=== PATIENT | female | born 1930 | race Caucasian/White ===

== ENCOUNTER 2019-07-31 14:07 | Inpatient (IN) | payer OTHER, MEDICARE ==
[2019-07-31] MEDS ORDERED: dilTIAZem HCL 50 MG/10 ML - 10 ML VIAL IVPUSH ONE (14:35)
[2019-07-31] MEDS ORDERED: LACTATED RINGERS SOLUTION 1000 ML INFUS.BAG IV ONE (14:36)
[2019-07-31 14:43] LABS: EOS % 0.6 % (0-4.5); HEMATOCRIT 42.8 % (32.4-45.2); HEMOGLOBIN 14.6 GM/dL (10.7-15.3); LYMPH % 11.6 % (8-40); MCH 33.7 pg (25.7-33.7); MEAN CELL VOLUME 99.1 fl (80-96); MEAN PLT VOLUME 7.1 fl (7.5-11.1); MONO % 9.9 % (3.8-10.2); NEUT % 76.9 % (42.8-82.8); PLATELET COUNT 239 K/MM3 (134-434); RBC 4.32 M/mm3 (3.60-5.2); WHITE BLOOD COUNT 6.2 K/mm3 (4.0-10.0)
[2019-07-31] MEDS: METOPROLOL TARTRATE 5 MG/5 ML VIAL IVPUSH PRN ×2 (14:43→15:03)
[2019-07-31 14:54] LABS: INR 1.01 (0.83-1.09); PROTHROMBIN TIME (PATIENT) 11.9 SEC (9.7-13.0)
[2019-07-31 14:57] LABS: ACTIVATED PTT 33.8 SECONDS (25.2-36.5)
[2019-07-31] MEDS ORDERED: METOPROLOL TARTRATE 25 MG TABLET (FP) PO ONE (15:00)
--- NOTE | 2019-07-31 15:29 | PDOC ---
Attending Attestation - Resident Resident Name: Matthew Tan - ED Attending Attestation I have performed the following: I have examined & evaluated the patient, The case was reviewed & discussed with the resident, I agree w/resident's findings & plan, Exceptions are as noted - HPI HPI: 07/31/19 15:23 89yo female with hx of ocular pemphigoid and htn, hld with new onset afib today. States she has been feeling "off" recently. States she was in Dr. Briggs office when her initial ekg was sinus and she went into afib w rvr. Pt denies cp /sob. Denies feeling palpitations. Denies abd pain. No n/v/d. No dysuria. No f/ c. No cough. Pt admits to recent weight loss. - Physicial Exam PE: 07/31/19 15:26 Gen: aaox3, nad heart: +s1s2 irreg irreg, tachy lungs: cta b/l abd: soft, nt/nd +bs ext: no c/c/e - Critical Care Time Total Critical Care Time: 35 Critical Care Statement: The care of this patient involved high complexity decision making to prevent further life threatening deterioration of the patient 's condition and/or to evaluate & treat vital organ system(s) failure or risk of failure. - Medical Decision Making 07/31/19 15:29 a/p: 89yo female on methotrexate for her ocular pemphigoid with new onset afib -hx of htn and hld -chadsvasc- will need anticoags -takes metoprolol orally - will give lopressor iv for rate control and follow with an oral dose of metoprolol -will send labs, tsh, trop -will need admission -will discuss with Dr. Briggs 07/31/19 15:30 HR 105 after 2 IV push lopressor 5mg oral metoprolol ordered bp stable resident discussed the case with Dr. Barber who requests consult to Dr. Luna 07/31/19 15:31 h/h stable 07/31/19 15:36 cxr clear 07/31/19 15:[address] Dorsey who will see patient in consult 07/31/19 15:57 07/31/19 17:05 symphomn has accepted the patient to service Heart Score/ECG Review - ECG Intrepretation Comment:: 07/31/19 15:31 afib at 135, nl axis, st depressions laterally, abnl ekg
--- NOTE | 2019-07-31 15:32 | PDOC ---
History of Present Illness - General Chief Complaint: Irregular Heart Beat Stated Complaint: SENT BY PCP/ABNORMAL EKG Time Seen by Provider: 07/31/19 14:24 History Source: Patient, Primary Care Provider Exam Limitations: No Limitations - History of Present Illness Initial Comments: HPI: 89 y/o female presenting to [facility] ER from the clinic of Dr. Barber for evaluation of rapid a-fib. Pt was at the clinic for routine follow up. During the course of examination, pt developed rapid a-fib with RVR. Pt endorses "a funny feeling" but denies chest pain, upper back pain, SOB, or syncope. Has never experienced a similar sensation, but does endorse a greater sense of anxiety over the past several weeks. Medical Hx: - Ocular cicatricial pemphigoid, managed w/ Methotrexate - HTN - Metabolic - HLD - MVP - Mod mitral regurgitation Review of Systems: In addition to that documented in the HPI above, the additional ROS was obtained : Constitutional- Denies fevers or chills Head- Denies vision changes ENMT- Denies sore throat CV- Denies chest pain Resp- Denies SOB GI- Denies vomiting or diarrhea - Denies painful urination MSK- Denies recent trauma Skin- Denies new rashes Neuro- Denies new numbness or tingling or weakness Endocrine- Denies polyuria Heme- Denies bleeding or bruising Physical Examination: Constitutional- Elderly adult female in no acute distress or obvious discomfort. Found semi-fowlers on hospital bed. Answered all questions appropriately and completely. Head- Normocephalic. No obvious external signs of trauma. Cardiovascular / Chest- Tachycardic rate with irregularly irregular rhythm. No murmur, rubs, clicks, or gallops. Peripheral pulses- radial pulses full. Respiratory- Breathing unlabored. Equal chest rise and fall. Clear to auscultation bilaterally. No stridor, no wheezing, no rhonchi. Neuro- Alert and oriented x4. Moving all four extremities spontaneously. Skin- Warm, dry, and intact. Psych- Affect- appropriate. Mood- normal. Speech was non-labored, non- pressured. MDM: *Reviewed vital signs, nursing notes, and prior visit documentation (if available). 89 y/o female presenting with new onset rapid a-fib. Afebrile. Vitals remarkable for tachycardia without hypotension. Physical exam as described above. EKG unremarkable for ischemic changes. Troponin not elevated. No significant electrolyte derangements. TSH within normal limits. Rate controlled with IV push of Metoprolol. Given PO Metoprolol for continued control. Anticoagulated with Eliquis. 31 Jul 2019 14:57 PM Telephone discussion with Dr. Candido Barber. Verbally appraised of the pts HPI, ED course, and current plan of management. Reported the pt has lost a significant amount of weight over recent months. Requests pt be admitted to [facility]. Requests call to [facility] cardiology group, who is covering for him. 31 Jul 2019 16:38 PM Telephone discussion with Dr. Dorsey. Verbally appraised of the pts HPI, ED course, and current plan of management. Pt to be started on DOAC. Will evaluate. 31 Jul 2019 17:01 PM Telephone discussion with resident Dr. Durant. Verbally appraised of the pts HPI, ED course, and current plan of management. Will admit pt to telemetry for attending Dr. Arambula. Matthew Tan M.D., PGY2 Emergency Medicine Resident Past History - Past Medical History Allergies/Adverse Reactions: Allergies Allergy/AdvReac Type Severity Reaction Status Date / Time carrot Allergy Verified 07/31/19 15:10 carrots Allergy Uncoded 07/31/19 14:38 Home Medications: Ambulatory Orders Folic Acid 1 mg PO DAILY 07/31/19 Hydrochlorothiazide 25 mg PO DAILY 07/31/19 Irbesartan 150 mg PO DAILY 07/31/19 Methotrexate Sodium [Methotrexate] 2.5 mg PO DAILY 07/31/19 COPD: No - Psycho Social/Smoking Cessation Hx Smoking History: Never smoked *Physical Exam - Vital Signs Last Vital Signs Temp Pulse Resp BP Pulse Ox 98.7 F 110 H 19 123/82 99 07/31/19 14:10 07/31/19 15:02 07/31/19 15:02 07/31/19 15:03 07/31/19 15:02 ED Treatment Course - LABORATORY CBC & Chemistry Diagram: 07/31/19 14:32 07/31/19 15:21 - ADDITIONAL ORDERS Additional order review: Laboratory Results 07/31/19 07/31/19 07/31/19 14:32 14:32 14:32 PT with INR 11.90 INR 1.01 PTT (Actin FS) 33.8 Sodium Potassium Chloride Carbon Dioxide Anion Gap BUN Creatinine Est GFR (CKD-EPI)AfAm Est GFR (CKD-EPI)NonAf Random Glucose Calcium Total Bilirubin AST ALT Alkaline Phosphatase Troponin I Cancelled Total Protein Albumin TSH Cancelled 07/31/19 14:32 PT with INR INR PTT (Actin FS) Sodium Cancelled Potassium Cancelled Chloride Cancelled Carbon Dioxide Cancelled Anion Gap Cancelled BUN Cancelled Creatinine Cancelled Est GFR (CKD-EPI)AfAm Cancelled Est GFR (CKD-EPI)NonAf Cancelled Random Glucose Cancelled Calcium Cancelled Total Bilirubin Cancelled AST Cancelled ALT Cancelled Alkaline Phosphatase Cancelled Troponin I Total Protein Cancelled Albumin Cancelled TSH 07/31/19 14:32 RBC 4.32 MCV 99.1 H MCHC 34.0 RDW 14.0 MPV 7.1 L Neutrophils % 76.9 Lymphocytes % 11.6 Monocytes % 9.9 Eosinophils % 0.6 Basophils % 1.0 - RADIOLOGY Radiology Studies Ordered: Category Date Time Status CHEST X-RAY PORTABLE* [RAD] Stat Radiology 07/31/19 14:21 Ordered - Medications Given in the ED: ED Medications Discontinued Medications Generic Name Dose Route Start Last Admin Trade Name Freq PRN Reason Stop Dose Admin Diltiazem HCl 20 mg 07/31/19 14:35 07/31/19 14:44 Cardizem Injection - IVPUSH 07/31/19 14:36 Not Given ONCE ONE Lactated Ringer's 1,000 ml 07/31/19 14:36 07/31/19 14:44 Lactated Ringers Solution IV 07/31/19 14:37 1,000 ml ONCE ONE Administration Metoprolol Tartrate 5 mg 07/31/19 14:40 07/31/19 15:03 Lopressor Injection - IVPUSH 07/31/19 14:56 5 mg Q5M PRN Administration HR greater than 130 Metoprolol Tartrate 25 mg 07/31/19 15:00 07/31/19 15:06 Lopressor - PO 07/31/19 15:01 25 mg ONCE ONE Administration Discharge - Discharge Information Problems reviewed: Yes Clinical Impression/Diagnosis: Atrial fibrillation with rapid ventricular response Condition: Stable - Admission Yes - Follow up/Referral Referrals: Candido Barber MD [Primary Care Provider] - - Patient Discharge Instructions - Post Discharge Activity
[2019-07-31] MEDS ORDERED: METOPROLOL TARTRATE 5 MG/5 ML VIAL IVPUSH PRN (16:27)
--- NOTE | 2019-07-31 16:29 | CON.CARD ---
Consult Consult Specialty:: Cardiology Referred by:: ER Reason for Consultation:: afib - History of Present Illness Chief Complaint: fatigue History of Present Illness: 89F h/o ocular pemphigoid, HTN, HLD p/w new onset afib. Recently has felt tired , off, has been undergoing workup for [place] [facility]ot[place]. Sees Dr. Barber for cardio, went to his office today where EKG initially showed sinus rhythm, then afib with RVR 130s. No chest pain, palps, dizziness, dyspnea. Has lost weight recently. Received IV lopressor in the ER - Smoking History Smoking history: Never smoked Home Medications - Allergies Allergies/Adverse Reactions: Allergies Allergy/AdvReac Type Severity Reaction Status Date / Time carrot Allergy Verified 07/31/19 15:10 carrots Allergy Uncoded 07/31/19 14:38 - Home Medications Home Medications: Ambulatory Orders Folic Acid 1 mg PO DAILY 07/31/19 Hydrochlorothiazide 25 mg PO DAILY 07/31/19 Irbesartan 150 mg PO DAILY 07/31/19 Methotrexate Sodium [Methotrexate] 2.5 mg PO DAILY 07/31/19 Family Medical History Family History: Unremarkable Review of Systems - Review of Systems Constitutional: reports: Malaise, Weakness Eyes: reports: No Symptoms HENT: reports: No Symptoms Neck: reports: No Symptoms Cardiovascular: reports: No Symptoms Respiratory: reports: No Symptoms Gastrointestinal: reports: No Symptoms Genitourinary: reports: No Symptoms Musculoskeletal: reports: No Symptoms Integumentary: reports: No Symptoms Neurological: reports: No Symptoms Endocrine: reports: No Symptoms Hematology/Lymphatic: reports: No Symptoms Psychiatric: reports: No Symptoms Vital Signs: Vital Signs Temperature 98.7 F 07/31/19 14:10 Pulse Rate 110 H 07/31/19 16:19 Respiratory Rate 19 07/31/19 16:19 Blood Pressure 135/79 07/31/19 16:19 O2 Sat by Pulse Oximetry (%) 98 07/31/19 16:19 Constitutional: Yes: No Distress, Calm Eyes: Yes: Conjunctiva Clear, EOM Intact HENT: Yes: Atraumatic, Normocephalic Neck: Yes: Supple, Trachea Midline Respiratory: Yes: Regular, CTA Bilaterally Gastrointestinal: Yes: Normal Bowel Sounds, Soft Cardiovascular: Yes: Pulse Irregular JVD: No Heart Sounds: Yes: S1, S2 Extremities: No: Cold Edema: No Integumentary: No: Jaundice Neurological: Yes: Alert, Oriented Psychiatric: No: Agitated - Other Data Labs, Other Data: CBC, BMP 07/31/19 14:32 INR, PTT INR 1.01 (0.83-1.09) 07/31/19 14:32 Troponin, BNP 07/31/19 07/31/19 14:32 15:21 Troponin I Cancelled 0.02 Troponin, BNP 07/31/19 07/31/19 14:32 15:21 Troponin I Cancelled 0.02 Assessment/Plan EKG: afib RVR 134 bpm, no ischemic changes CXR: no acute process tele: afib rate 100s-110s atrial fibrillation - rate improved after lopressor - not sure home meds - need to confirm, was on metoprolol at home - for now metoprolol succinate 25 mg BID, uptitrate as tolerated - monitor on tele - echo pending - [id number] warrants AC - labs currently pending, would start NOAC pending Cr - TSH pending weight loss - >10 lbs recently - TSH pending above, workup per primary HTN - cont current meds, BP stable
[2019-07-31 16:30] LABS: ALBUMIN 3.2 g/dl (3.4-5.0); BILIRUBIN,TOTAL 1.3 mg/dL (0.2-1); BLOOD UREA NITROGEN 20.8 mg/dL (7-18); CALCIUM 9.2 mg/dL (8.5-10.1); POTASSIUM 3.6 mmol/L (3.5-5.1)
--- NOTE | 2019-07-31 16:57 | PN ---
Teaching Attending Note Name of Resident: Cortez Damon ATTENDING PHYSICIAN STATEMENT I saw and evaluated the patient. I reviewed the resident's note and discussed the case with the resident. I agree with the resident's findings and plan as documented with exceptions below. SUBJECTIVE: 89 yof with PMHx of HTN, HLD,Ocular pemphigoid on methotrexate, was seen in Dr. Barber's office today for increased fatigue, EKG in office showed new onset Afib 130s. s/p Lopressor 5 mg IV in ED and Diltiazem 20 mg IV Denies any chest pain, palitations, dyspnea, dizziness, orthopnea, PND, abdominal or urinary symptoms. Family at bedside, report more than 10 lb gradual unintentional weight loss OBJECTIVE: Vital Signs Period Temp Pulse Resp BP Sys/Lee Pulse Ox Last 24 Hr 98.7 F 110-135 - 123-148/79-102 98-100 Intake & Output 07/28/19 07/29/19 07/30/19 07/31/19 23:59 23:59 23:59 23:59 Weight 150 lb GENERAL: Awake, alert, and fully oriented, in no acute distress. HEAD: Normal with no signs of trauma. EYES: EOMI, no lid lag EARS, NOSE, THROAT: Ears normal, nares patent, oropharynx clear without exudates. Moist mucous membranes. NECK: soft, supple, no JVD LUNGS: Breath sounds equal, clear to auscultation bilaterally. No wheezes, and no crackles. No accessory muscle use. HEART: S1S2 irregular, tachycardic ABDOMEN: Soft, nontender, not distended, normoactive bowel sounds, no guarding, no rebound, no masses. MUSCULOSKELETAL: Normal range of motion at all joints. No bony deformities or tenderness. No CVA tenderness. UPPER EXTREMITIES: 2+ pulses, warm, well-perfused. No cyanosis. No clubbing. No peripheral edema. LOWER EXTREMITIES: 2+ pulses, warm, well-perfused. No calf tenderness. No peripheral edema, varicosities. NEUROLOGICAL: AAOx3, facial symmetry, tongue midline, Cranial nerves II-XII grossly intact intact. Normal speech. Gait not observed PSYCHIATRIC: Cooperative. Good eye contact. Appropriate mood and affect. SKIN: Warm, dry, normal turgor, no rashes or lesions noted, normal capillary refill. Home Medications Medication Instructions Recorded Folic Acid 1 mg PO DAILY 07/31/19 Hydrochlorothiazide 25 mg PO DAILY 07/31/19 Irbesartan 150 mg PO DAILY 07/31/19 Methotrexate Sodium [Methotrexate] 2.5 mg PO DAILY 07/31/19 Active Medications Metoprolol Succinate (Toprol Xl -) 25 mg PO BID MINE Metoprolol Tartrate (Lopressor Injection -) 5 mg IVPUSH Q4H PRN PRN Reason: TACHYCARDIA Laboratory Results - last 24 hr 07/31/19 07/31/19 07/31/19 14:32 14:32 14:32 WBC 6.2 RBC 4.32 Hgb 14.6 Hct 42.8 MCV 99.1 H MCH 33.7 MCHC 34.0 RDW 14.0 Plt Count 239 MPV 7.1 L Absolute Neuts (auto) 4.8 Neutrophils % 76.9 Lymphocytes % 11.6 Monocytes % 9.9 Eosinophils % 0.6 Basophils % 1.0 Nucleated RBC % 0 PT with INR 11.90 INR 1.01 PTT (Actin FS) 33.8 Sodium Cancelled Potassium Cancelled Chloride Cancelled Carbon Dioxide Cancelled Anion Gap Cancelled BUN Cancelled Creatinine Cancelled Est GFR (CKD-EPI)AfAm Cancelled Est GFR (CKD-EPI)NonAf Cancelled Random Glucose Cancelled Calcium Cancelled Total Bilirubin Cancelled AST Cancelled ALT Cancelled Alkaline Phosphatase Cancelled Troponin I Total Protein Cancelled Albumin Cancelled TSH 07/31/19 07/31/19 07/31/19 14:32 14:32 15:21 WBC RBC Hgb Hct MCV MCH MCHC RDW Plt Count MPV Absolute Neuts (auto) Neutrophils % Lymphocytes % Monocytes % Eosinophils % Basophils % Nucleated RBC % PT with INR INR PTT (Actin FS) Sodium 138 Potassium 3.6 Chloride 102 Carbon Dioxide 32 Anion Gap 4 L BUN 20.8 H Creatinine 1.0 Est GFR (CKD-EPI)AfAm 58.25 Est GFR (CKD-EPI)NonAf 50.26 Random Glucose 106 Calcium 9.2 Total Bilirubin 1.3 H AST 17 ALT 15 Alkaline Phosphatase 56 Troponin I Cancelled Total Protein 6.0 L Albumin 3.2 L TSH Cancelled 1.79 07/31/19 15:21 WBC RBC Hgb Hct MCV MCH MCHC RDW Plt Count MPV Absolute Neuts (auto) Neutrophils % Lymphocytes % Monocytes % Eosinophils % Basophils % Nucleated RBC % PT with INR INR PTT (Actin FS) Sodium Potassium Chloride Carbon Dioxide Anion Gap BUN Creatinine Est GFR (CKD-EPI)AfAm Est GFR (CKD-EPI)NonAf Random Glucose Calcium Total Bilirubin AST ALT Alkaline Phosphatase Troponin I 0.02 Total Protein Albumin TSH EKG: CXR: limited but no acute process ASSESSMENT AND PLAN: 89 yof with PMhx of HTN, HLD, being worked up for ocular pemphigoid at [facility] [place], on methotrexate, admitted with new onset Afib with RVR. -New Onset Afib with RVR -HTN -HLD -Suspected ocular pemphigoid being worked up at [facility], on Methotrexate. Plan: Cardiology input noted. Discussed with Dr. Dorsey. toprol XL 25 mg BID and metoprolol 5 mg IV q4h prn Start eliquis 2.5 mg BID. 2D echo, check TSH, gentle hydration. Hold other anti-hypertensives to allow room for rate controlling agents. Continue methotrexate. DVTPPX eliquis as above Dispo admit to telemetry. Discussed with patient and family at bedside, all questions answered. Care co-ordinated with ED and cardiology. Total admit time 65 min.
[2019-07-31] MEDS ORDERED: APIXABAN 5 MG TABLET PO ONE (17:00)
[2019-07-31] MEDS ORDERED: APIXABAN 5 MG TABLET ONE ×2 (17:29→21:49)
[2019-07-31] MEDS ORDERED: SODIUM CHLORIDE 1,000 ML IV SCH (18:15)
[2019-07-31 18:22] VITALS: BMI 17.7
--- NOTE | 2019-07-31 18:25 | HP ---
CHIEF COMPLAINT: fatigue PCP: Dr Barber(curb supervisor) HISTORY OF PRESENT ILLNESS: 89F w/ HTN, HLD, ocular cicatricial pemphigoid 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 Had complaint of fatigue, unintentional loss of 10-20lbs over 4months. Occasionally feels anxious. Strong light bothers her, wears sunglasses outside. Denies CP, SOB, sweating, palpitations, leg swelling, abdominal pain, diarrhea. Denies h/o of falls. No recent changes in medications. On methrotrexate for ocular cicatricial pemphigoid, with plan for weaning off in Oct 2019. Acheives ADLs independently. Lives at home with daughter and [place]. 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 ER course was notable for: (1) EKG: Afib, 135bpm, QTc 408 (2) lopressor 25mg PO, lopressor 5mg IVP x2 (3) LR 1L Recent Travel: none PAST MEDICAL HISTORY: HTN, HLD, ocular cicatricial pemphigoid PAST SURGICAL HISTORY: tonsilectomy(7 y/o) hysterectomy Social History: Smoking: denies Alcohol: denies Drugs: denies Allergies carrot Allergy (Verified 07/31/19 15:10) carrots Allergy (Uncoded 07/31/19 14:38) HOME MEDICATIONS: Home Medications Medication Instructions Recorded Folic Acid 1 mg PO DAILY 07/31/19 Hydrochlorothiazide 25 mg PO DAILY 07/31/19 Irbesartan 150 mg PO DAILY 07/31/19 Methotrexate Sodium [Methotrexate] 2.5 mg PO DAILY 07/31/19 REVIEW OF SYSTEMS CONSTITUTIONAL: malaise Absent: fever, chills, diaphoresis, generalized weakness, loss of appetite, weight change HEENT: Absent: rhinorrhea, nasal congestion, throat pain, throat swelling, difficulty swallowing, eye pain, visual changes CARDIOVASCULAR: Absent: chest pain, syncope, palpitations, irregular heart rate, lightheadedness , peripheral edema RESPIRATORY: Absent: cough, shortness of breath, dyspnea with exertion, orthopnea, wheezing, stridor, hemoptysis GASTROINTESTINAL: Absent: abdominal pain, abdominal distension, nausea, vomiting, diarrhea, constipation, melena, hematochezia GENITOURINARY: Absent: dysuria, frequency, urgency, hesitancy, hematuria, flank pain, genital pain MUSCULOSKELETAL: Absent: myalgia, arthralgia, joint swelling, back pain, neck pain SKIN: Absent: rash, itching, pallor ENDOCRINE: loss 10-20lbs over 4month Absent: unexplained weight gain, heat intolerance, cold intolerance NEUROLOGIC: Absent: headache, focal weakness or paresthesias, dizziness, unsteady gait, seizure, mental status changes, bladder or bowel incontinence PHYSICAL EXAMINATION Vital Signs - 24 hr 07/31/19 07/31/19 07/31/19 14:10 14:43 15:02 Temperature 98.7 F Pulse Rate 135 H Pulse Rate [ 110 H Left Radial] Respiratory 19 19 Rate Blood Pressure 148/102 H 148/102 H Blood Pressure 123/82 [Right Arm] O2 Sat by Pulse 100 99 Oximetry (%) 07/31/19 07/31/19 15:03 16:19 Temperature Pulse Rate Pulse Rate [ 110 H Left Radial] Respiratory 19 Rate Blood Pressure 123/82 Blood Pressure 135/79 [Right Arm] O2 Sat by Pulse 98 Oximetry (%) GENERAL: Awake, alert, and fully oriented. NAC HEAD: Thinning park hair. NC/AT. Mild temporal wasting. No scalp hematomas EYES: Left eye with slightly hyperemic conjuctiva. sclera anicteric, conjunctiva clear. No lid lag. EARS, NOSE, THROAT: Ears normal, nares patent. Moist mucous membranes. NECK: Normal range of motion, supple without lymphadenopathy, JVD, or masses. LUNGS: Breath sounds equal, clear to auscultation bilaterally. No wheezes, and no crackles. No accessory muscle use. HEART: iregular rhythm. RVR. normal S1 and S2 without murmur, rub or gallop. ABDOMEN: Soft, nontender, not distended, no guarding, no rebound, no masses. MUSCULOSKELETAL: Normal range of motion at all joints. No bony deformities or tenderness. No CVA tenderness. UPPER EXTREMITIES: 2+ pulses, warm, well-perfused. No cyanosis. No clubbing. No peripheral edema. LOWER EXTREMITIES: 2+ pulses, warm, well-perfused. No calf tenderness. No peripheral edema. BLE nonprotrudcing varicosities. NEUROLOGICAL: Normal speech. CNII - XII intact. PSYCHIATRIC: Cooperative. Good eye contact. Appropriate mood and affect. SKIN: Warm, dry, normal turgor, no rashes or lesions noted, normal capillary refill. Laboratory Results - last 24 hr 07/31/19 07/31/19 07/31/19 14:32 14:32 14:32 WBC 6.2 RBC 4.32 Hgb 14.6 Hct 42.8 MCV 99.1 H MCH 33.7 MCHC 34.0 RDW 14.0 Plt Count 239 MPV 7.1 L Absolute Neuts (auto) 4.8 Neutrophils % 76.9 Lymphocytes % 11.6 Monocytes % 9.9 Eosinophils % 0.6 Basophils % 1.0 Nucleated RBC % 0 PT with INR 11.90 INR 1.01 PTT (Actin FS) 33.8 Sodium Cancelled Potassium Cancelled Chloride Cancelled Carbon Dioxide Cancelled Anion Gap Cancelled BUN Cancelled Creatinine Cancelled Est GFR (CKD-EPI)AfAm Cancelled Est GFR (CKD-EPI)NonAf Cancelled Random Glucose Cancelled Calcium Cancelled Total Bilirubin Cancelled AST Cancelled ALT Cancelled Alkaline Phosphatase Cancelled Troponin I Total Protein Cancelled Albumin Cancelled TSH 07/31/19 07/31/19 07/31/19 14:32 14:32 15:21 WBC RBC Hgb Hct MCV MCH MCHC RDW Plt Count MPV Absolute Neuts (auto) Neutrophils % Lymphocytes % Monocytes % Eosinophils % Basophils % Nucleated RBC % PT with INR INR PTT (Actin FS) Sodium 138 Potassium 3.6 Chloride 102 Carbon Dioxide 32 Anion Gap 4 L BUN 20.8 H Creatinine 1.0 Est GFR (CKD-EPI)AfAm 58.25 Est GFR (CKD-EPI)NonAf 50.26 Random Glucose 106 Calcium 9.2 Total Bilirubin 1.3 H AST 17 ALT 15 Alkaline Phosphatase 56 Troponin I Cancelled Total Protein 6.0 L Albumin 3.2 L TSH Cancelled 1.79 07/31/19 15:21 WBC RBC Hgb Hct MCV MCH MCHC RDW Plt Count MPV Absolute Neuts (auto) Neutrophils % Lymphocytes % Monocytes % Eosinophils % Basophils % Nucleated RBC % PT with INR INR PTT (Actin FS) Sodium Potassium Chloride Carbon Dioxide Anion Gap BUN Creatinine Est GFR (CKD-EPI)AfAm Est GFR (CKD-EPI)NonAf Random Glucose Calcium Total Bilirubin AST ALT Alkaline Phosphatase Troponin I 0.02 Total Protein Albumin TSH ASSESSMENT/PLAN: 89F w/ HTN, HLD, ocular cicatricial pemphigoid 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 Had complaint of fatigue, unintentional loss of 10-20lbs. EKG showing Afib. In ED, received lopressor 25mg PO, lopressor 5mg IVP x2. Cardio(Dorsey) rec Echo, TSH, A/C. # new-onset Afib > CXR(07/31/19): neg for acute > EKG(07/31/19): 135bpm, QTc 408ms > TSH: 1.79 > Troponin 0.02 - [id number] ~4 - ED: s/p LR x1L, lopressor 25mg PO, lopressor 5mg IVP x2 - Cardio: -- metoprolol succinate 25mg BID -- metoprolol 5mg IVP q4h -- Eqliuis 2.5mg BID -- echo # ocular cicatricial pemphoigoid - cw home methotrexate(qSunday, can restart next week) # chronic essential HTN - hold home BP meds(HCTZ, irebesartan) for now # hyperbilirubinemia --no RUQ > Tbil 1.3 - trend FEN - NS @ 75 - sodium-controlled diet Dispo - tele - dc plan: pending PT for home need but likely dc home Family Medical History Family Hx Cancer: Father (unspecified) Family Hx Cardiac Disorders: Mother Family Hx Nuerologic Problems: Mother (stroke) Visit type - Emergency Visit Emergency Visit: Yes ED Registration Date: 07/31/19 Care time: The patient presented to the Emergency Department on the above date and was hospitalized for further evaluation of their emergent condition. - New Patient This patient is new to me today: Yes Date on this admission: 07/31/19 - Critical Care Critical Care patient: No ATTENDING PHYSICIAN STATEMENT I saw and evaluated the patient. I reviewed the resident's note and discussed the case with the resident. I agree with the resident's findings and plan as documented. SUBJECTIVE: OBJECTIVE: ASSESSMENT AND PLAN:
[2019-07-31] MEDS ORDERED: KCL 10 MEQ IVPB 10 MEQ/100 ML INFUS.BAG IVPB SCH (18:30)
[2019-07-31] MEDS ORDERED: POTASSIUM CHLORIDE TABS 20 MEQ TABLET.ER (FP) PO ONE ×2 (18:30→19:08)
[2019-07-31] MEDS: metoPROLOL SUCCINATE 25 MG TAB.SR.24H (FP) PO SCH (22:00)
[2019-07-31] MEDS: APIXABAN 2.5 MG TABLET PO SCH (22:00)
[2019-08-01 06:04] LABS: BASO % 0.8 % (0-2.0); EOS % 2.1 % (0-4.5); HEMATOCRIT 39.7 % (32.4-45.2); HEMOGLOBIN 13.4 GM/dL (10.7-15.3); LYMPH % 14.7 % (8-40); MCH 33.8 pg (25.7-33.7); MCHC 33.9 g/dl (32.0-36.0); MEAN CELL VOLUME 99.8 fl (80-96); MEAN PLT VOLUME 6.8 fl (7.5-11.1); MONO % 11.9 % (3.8-10.2); NEUT % 70.5 % (42.8-82.8); PLATELET COUNT 214 K/MM3 (134-434); RBC 3.98 M/mm3 (3.60-5.2); RDW 13.7 % (11.6-15.6); WHITE BLOOD COUNT 4.8 K/mm3 (4.0-10.0)
[2019-08-01 06:34] LABS: BLOOD UREA NITROGEN 18.8 mg/dL (7-18); CALCIUM 9.2 mg/dL (8.5-10.1); MAGNESIUM 1.9 mg/dL (1.8-2.4)
--- NOTE | 2019-08-01 09:40 | PN ---
Progress Note, Physician Chief Complaint: seen in cardiology No distress Denies CP, SOB, palps. - Current Medication List Current Medications: Active Medications Apixaban (Eliquis -) 2.5 mg PO BID [facility] Last Admin: 07/31/19 22:00 Dose: 2.5 mg Sodium Chloride (Normal Saline -) 1,000 mls @ 75 mls/hr IV ASDIR [facility] Last Admin: 07/31/19 19:30 Dose: 75 mls/hr Metoprolol Succinate (Toprol Xl -) 25 mg PO BID [facility] Last Admin: 07/31/19 22:00 Dose: 25 mg Metoprolol Tartrate (Lopressor Injection -) 5 mg IVPUSH Q4H PRN PRN Reason: TACHYCARDIA - Objective Vital Signs: Vital Signs Temperature 98.7 F 07/31/19 14:10 Pulse Rate 66 08/01/19 04:25 Respiratory Rate 18 08/01/19 04:25 Blood Pressure 148/76 08/01/19 04:25 O2 Sat by Pulse Oximetry (%) 96 08/01/19 04:25 Constitutional: Yes: No Distress, Calm Cardiovascular: Yes: Regular Rate and Rhythm Respiratory: Yes: CTA Bilaterally Gastrointestinal: Yes: Soft Edema: No Neurological: Yes: Alert, Oriented Labs: CBC, BMP 08/01/19 05:40 08/01/19 05:40 INR, PTT INR 1.01 (0.83-1.09) 07/31/19 14:32 Laboratory Tests 07/31/19 07/31/19 08/01/19 15:21 15:21 05:40 WBC 4.8 Hgb 13.4 Plt Count 214 Sodium Potassium Creatinine Creatine Kinase Troponin I 0.02 Cholesterol Total LDL Cholesterol HDL Cholesterol TSH 1.79 08/01/19 05:40 WBC Hgb Plt Count Sodium 141 Potassium 4.0 Creatinine 1.0 Creatine Kinase 71 Troponin I 0.07 H Cholesterol 241 H Total LDL Cholesterol 138 H HDL Cholesterol 89 H TSH - ....Imaging EKG: Image Reviewed Assessment/Plan Assessment/Plan EKG: afib RVR 134 bpm, no ischemic changes CXR: no acute process tele: afib rate 100s-110s atrial fibrillation: - rate improved after lopressor - for now metoprolol succinate 25 mg BID, uptitrate as tolerated - monitor on tele - echo pending - [id number] warrants AC -Eliquis. Adjust for age, weight and renal fxn - TSH wnl weight loss - >10 lbs recently - workup per primary HTN - cont current meds, BP stable
--- NOTE | 2019-08-01 10:52 | ECHO ---
Name: RICARDO SWAN Exam:Adult Echocardiogram Study Date: 08/01/2019 09:07 AM Age: 89 yrs Reason For Study: A-Fib Height: 66 in Weight: 150 lb BSA: 1.8 m2 MMode/2D Measurements & Calculations IVSd: 1.2 cm Ao root diam: 2.8 cm LVIDd: 3.4 cm LA dimension: 3.4 cm LVIDs: 1.8 cm LVPWd: 1.0 cm EDV(Teich): 48.4 ml LVOT diam: 2.0 cm ESV(Teich): 10.0 ml LAV (MOD-bp): 45.0 ml Doppler Measurements & Calculations MV E max tomi: 102.0 cm/sec Ao V2 max: 130.3 cm/sec MV A max tomi: 82.9 cm/sec Ao max P.8 mmHg MV E/A: 1.2 AI P1/2t: 283.5 msec MV dec time: 0.20 sec TARA(V,D): 2.4 cm2 AI max tomi: 377.6 cm/sec LV V1 max P.4 mmHg AI max P.0 mmHg LV V1 max: 105.3 cm/sec AI dec slope: 390.1 cm/sec2 MR max tomi: 525.3 cm/sec TR max tomi: 305.7 cm/sec MR max P.2 mmHg TR max P.5 mmHg PA V2 max: 99.1 cm/sec Med Peak E' Tomi: 7.2 cm/sec PA max P.9 mmHg Med E/e': 14.2 Lat Peak E' Tomi: 8.9 cm/sec Lat E/e': 11.4 PI Vmax: 92.3 cm/sec Left Ventricle Mild basal septal hypertrophy. Ejection Fraction = 55-60%. The left ventricular wall motion is normal . Right Ventricle The right ventricle is normal in size and function. Atria The left atrium is mildly dilated. Right atrial size is normal. Mitral Valve The mitral valve is normal in structure and function. There is no mitral valve stenosis. There is mil d mitral regurgitation. Tricuspid Valve The tricuspid valve is normal in structure and function. There is mild to moderate tricuspid regurgit ation. Right ventricular systolic pressure is elevated at 40-50mmHg. Aortic Valve There is mild aortic sclerosis.;. No hemodynamically significant valvular aortic stenosis. Mild aorti c regurgitation. Pulmonic Valve The pulmonic valve is not well seen, but is grossly normal. There is no pulmonic valvular stenosis. T race pulmonic valvular regurgitation. Great Vessels The aortic root is normal size. Pericardium/Pleura There is no pericardial effusion. Interpretation Summary Ejection Fraction = 55-60%. The right ventricle is normal in size and function. The left atrium is mildly dilated. There is mild mitral regurgitation. There is mild to moderate tricuspid regurgitation. Right ventricular systolic pressure is elevated at 40-50mmHg. There is mild aortic sclerosis.; Mild aortic regurgitation. There is no pericardial effusion. MD Nazario *Haylee 08/01/2019 10:51 AM
[2019-08-01] MEDS ORDERED: APIXABAN 5 MG TABLET ONE (10:54)
[2019-08-01] MEDS: metoPROLOL SUCCINATE 25 MG TAB.SR.24H (FP) PO SCH (11:22)
[2019-08-01] MEDS: APIXABAN 2.5 MG TABLET PO SCH (11:22)
[2019-08-01 11:40] VITALS: BP 135/83; TEMP 97.4
--- NOTE | 2019-08-01 13:35 | PN ---
Teaching Attending Note Name of Resident: Cortez Damon ATTENDING PHYSICIAN STATEMENT I saw and evaluated the patient. I reviewed the resident's note and discussed the case with the resident. I agree with the resident's findings and plan as documented with exceptions below. SUBJECTIVE: Patient seen and examined, no complaints overnight. OBJECTIVE: Vital Signs Period Temp Pulse Resp BP Sys/Lee Pulse Ox Last 24 Hr 97.4 F-98.7 F 66-135 16-20 123-148/56-102 96-100 Intake & Output 07/29/19 07/30/19 07/31/19 08/01/19 23:59 23:59 23:59 23:59 Weight 110 lb General: sitting in chair in no acute distress neck: soft, supple Chest: CTAB, no rales or wheezing Abdomen:Soft, NT CVS:S1S2 regular Extremities: no edema Home Medications Medication Instructions Recorded Folic Acid 1 mg PO DAILY 07/31/19 Hydrochlorothiazide 25 mg PO DAILY 07/31/19 Irbesartan 150 mg PO DAILY 07/31/19 Methotrexate Sodium [Methotrexate] 2.5 mg PO GAITAN 07/31/19 Active Medications Apixaban (Eliquis -) 2.5 mg PO BID [facility] Last Admin: 08/01/19 11:22 Dose: 2.5 mg Sodium Chloride (Normal Saline -) 1,000 mls @ 75 mls/hr IV ASDIR [facility] Last Admin: 07/31/19 19:30 Dose: 75 mls/hr Metoprolol Succinate (Toprol Xl -) 25 mg PO BID [facility] Last Admin: 08/01/19 11:22 Dose: 25 mg Metoprolol Tartrate (Lopressor Injection -) 5 mg IVPUSH Q4H PRN PRN Reason: TACHYCARDIA Laboratory Results - last 24 hr 07/31/19 07/31/19 07/31/19 14:32 14:32 14:32 WBC 6.2 RBC 4.32 Hgb 14.6 Hct 42.8 MCV 99.1 H MCH 33.7 MCHC 34.0 RDW 14.0 Plt Count 239 MPV 7.1 L Absolute Neuts (auto) 4.8 Neutrophils % 76.9 Lymphocytes % 11.6 Monocytes % 9.9 Eosinophils % 0.6 Basophils % 1.0 Nucleated RBC % 0 PT with INR 11.90 INR 1.01 PTT (Actin FS) 33.8 Sodium Cancelled Potassium Cancelled Chloride Cancelled Carbon Dioxide Cancelled Anion Gap Cancelled BUN Cancelled Creatinine Cancelled Est GFR (CKD-EPI)AfAm Cancelled Est GFR (CKD-EPI)NonAf Cancelled Random Glucose Cancelled Calcium Cancelled Phosphorus Magnesium Total Bilirubin Cancelled AST Cancelled ALT Cancelled Alkaline Phosphatase Cancelled Creatine Kinase Troponin I Total Protein Cancelled Albumin Cancelled Triglycerides Cholesterol Total LDL Cholesterol HDL Cholesterol TSH 07/31/19 07/31/19 07/31/19 14:32 14:32 15:21 WBC RBC Hgb Hct MCV MCH MCHC RDW Plt Count MPV Absolute Neuts (auto) Neutrophils % Lymphocytes % Monocytes % Eosinophils % Basophils % Nucleated RBC % PT with INR INR PTT (Actin FS) Sodium 138 Potassium 3.6 Chloride 102 Carbon Dioxide 32 Anion Gap 4 L BUN 20.8 H Creatinine 1.0 Est GFR (CKD-EPI)AfAm 58.25 Est GFR (CKD-EPI)NonAf 50.26 Random Glucose 106 Calcium 9.2 Phosphorus Magnesium Total Bilirubin 1.3 H AST 17 ALT 15 Alkaline Phosphatase 56 Creatine Kinase Troponin I Cancelled Total Protein 6.0 L Albumin 3.2 L Triglycerides Cholesterol Total LDL Cholesterol HDL Cholesterol TSH Cancelled 1.79 07/31/19 08/01/19 08/01/19 15:21 05:40 05:40 WBC 4.8 RBC 3.98 Hgb 13.4 Hct 39.7 MCV 99.8 H MCH 33.8 H MCHC 33.9 RDW 13.7 Plt Count 214 MPV 6.8 L Absolute Neuts (auto) 3.4 Neutrophils % 70.5 Lymphocytes % 14.7 D Monocytes % 11.9 H Eosinophils % 2.1 D Basophils % 0.8 Nucleated RBC % 0 PT with INR INR PTT (Actin FS) Sodium 141 Potassium 4.0 Chloride 106 Carbon Dioxide 30 Anion Gap 4 L BUN 18.8 H Creatinine 1.0 Est GFR (CKD-EPI)AfAm 58.25 Est GFR (CKD-EPI)NonAf 50.26 Random Glucose 83 Calcium 9.2 Phosphorus 3.0 Magnesium 1.9 Total Bilirubin AST ALT Alkaline Phosphatase Creatine Kinase 71 Troponin I 0.02 0.07 H Total Protein Albumin Triglycerides 71 Cholesterol 241 H Total LDL Cholesterol 138 H HDL Cholesterol 89 H TSH 08/01/19 12:00 WBC RBC Hgb Hct MCV MCH MCHC RDW Plt Count MPV Absolute Neuts (auto) Neutrophils % Lymphocytes % Monocytes % Eosinophils % Basophils % Nucleated RBC % PT with INR INR PTT (Actin FS) Sodium Potassium Chloride Carbon Dioxide Anion Gap BUN Creatinine Est GFR (CKD-EPI)AfAm Est GFR (CKD-EPI)NonAf Random Glucose Calcium Phosphorus Magnesium Total Bilirubin AST ALT Alkaline Phosphatase Creatine Kinase Troponin I 0.05 Total Protein Albumin Triglycerides Cholesterol Total LDL Cholesterol HDL Cholesterol TSH Telemetry: NSR 60s-70s ASSESSMENT AND PLAN: 89 yof with PMhx of HTN, HLD, being worked up for ocular pemphigoid [place] [facility]ot[place], admitted with new onset Afib with RVR. 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 Plan: reverted to NSR. Continue metoprolol/eliquis 2DEcho noted Discussed with dionne Romero for dc. BP stable, will hold ARB/HCTZ on dc, to be resumed outpatient based on home BP readings Dc home with family today.
--- NOTE | 2019-08-01 14:03 | EKG ---
Test Reason : Blood Pressure : / mmHG Vent. Rate : 135 BPM Atrial Rate : 120 BPM P-R Int : 000 ms QRS Dur : 082 ms QT Int : 272 ms P-R-T Axes : 000 012 085 degrees QTc Int : 408 ms ATRIAL FIBRILLATION WITH RAPID VENTRICULAR RESPONSE NONSPECIFIC ST ABNORMALITY ABNORMAL ECG NO PREVIOUS ECGS AVAILABLE Confirmed by TATY KIM MD ([id number]) on 08/01/2019 2:03:06 PM Referred By: Confirmed By:TATY KIM MD
[2019-08-01 14:17] VITALS: PULSE 75
--- NOTE | 2019-08-01 15:08 | DS ---
Physical Exam: SUBJECTIVE: Patient seen and examined OBJECTIVE: Vital Signs Period Temp Pulse Resp BP Sys/Lee Pulse Ox Last 24 Hr 97.4 F 66-110 16-20 131-148/56-83 96-99 PHYSICAL EXAM GENERAL: Awake, alert, and fully oriented. NAC HEAD: Thinning park hair. NC/AT. Mild temporal wasting. No scalp hematomas EYES: Left eye with slightly hyperemic conjuctiva. sclera anicteric, conjunctiva clear. No lid lag. EARS, NOSE, THROAT: Ears normal, nares patent. Moist mucous membranes. NECK: Normal range of motion, supple without lymphadenopathy, JVD, or masses. LUNGS: Breath sounds equal, clear to auscultation bilaterally. No wheezes, and no crackles. No accessory muscle use. HEART: iregular rhythm. RVR. normal S1 and S2 without murmur, rub or gallop. ABDOMEN: Soft, nontender, not distended, no guarding, no rebound, no masses. MUSCULOSKELETAL: Normal range of motion at all joints. No bony deformities or tenderness. No CVA tenderness. UPPER EXTREMITIES: 2+ pulses, warm, well-perfused. No cyanosis. No clubbing. No peripheral edema. LOWER EXTREMITIES: 2+ pulses, warm, well-perfused. No calf tenderness. No peripheral edema. BLE nonprotrudcing varicosities. NEUROLOGICAL: Normal speech. CNII - XII intact. PSYCHIATRIC: Cooperative. Good eye contact. Appropriate mood and affect. SKIN: Warm, dry, normal turgor, no rashes or lesions noted, normal capillary refill. LABS Laboratory Results - last 24 hr 07/31/19 07/31/19 07/31/19 14:32 14:32 14:32 WBC RBC Hgb Hct MCV MCH MCHC RDW Plt Count MPV Absolute Neuts (auto) Neutrophils % Lymphocytes % Monocytes % Eosinophils % Basophils % Nucleated RBC % Sodium Cancelled Potassium Cancelled Chloride Cancelled Carbon Dioxide Cancelled Anion Gap Cancelled BUN Cancelled Creatinine Cancelled Est GFR (CKD-EPI)AfAm Cancelled Est GFR (CKD-EPI)NonAf Cancelled Random Glucose Cancelled Calcium Cancelled Phosphorus Magnesium Total Bilirubin Cancelled AST Cancelled ALT Cancelled Alkaline Phosphatase Cancelled Creatine Kinase Troponin I Cancelled Total Protein Cancelled Albumin Cancelled Triglycerides Cholesterol Total LDL Cholesterol HDL Cholesterol TSH Cancelled 07/31/19 07/31/19 08/01/19 15:21 15:21 05:40 WBC 4.8 RBC 3.98 Hgb 13.4 Hct 39.7 MCV 99.8 H MCH 33.8 H MCHC 33.9 RDW 13.7 Plt Count 214 MPV 6.8 L Absolute Neuts (auto) 3.4 Neutrophils % 70.5 Lymphocytes % 14.7 D Monocytes % 11.9 H Eosinophils % 2.1 D Basophils % 0.8 Nucleated RBC % 0 Sodium 138 Potassium 3.6 Chloride 102 Carbon Dioxide 32 Anion Gap 4 L BUN 20.8 H Creatinine 1.0 Est GFR (CKD-EPI)AfAm 58.25 Est GFR (CKD-EPI)NonAf 50.26 Random Glucose 106 Calcium 9.2 Phosphorus Magnesium Total Bilirubin 1.3 H AST 17 ALT 15 Alkaline Phosphatase 56 Creatine Kinase Troponin I 0.02 Total Protein 6.0 L Albumin 3.2 L Triglycerides Cholesterol Total LDL Cholesterol HDL Cholesterol TSH 1.79 08/01/19 08/01/19 05:40 12:00 WBC RBC Hgb Hct MCV MCH MCHC RDW Plt Count MPV Absolute Neuts (auto) Neutrophils % Lymphocytes % Monocytes % Eosinophils % Basophils % Nucleated RBC % Sodium 141 Potassium 4.0 Chloride 106 Carbon Dioxide 30 Anion Gap 4 L BUN 18.8 H Creatinine 1.0 Est GFR (CKD-EPI)AfAm 58.25 Est GFR (CKD-EPI)NonAf 50.26 Random Glucose 83 Calcium 9.2 Phosphorus 3.0 Magnesium 1.9 Total Bilirubin AST ALT Alkaline Phosphatase Creatine Kinase 71 Troponin I 0.07 H 0.05 Total Protein Albumin Triglycerides 71 Cholesterol 241 H Total LDL Cholesterol 138 H HDL Cholesterol 89 H TSH HOSPITAL COURSE: 89F w/ HTN, HLD, ocular cicatricial pemphigoid sent in from integrity consultant for new onset Afib w/ RVR(HR 130s). Had complaint of fatigue, unintentional loss of 10-20lbs. EKG showing Afib. In ED, received lopressor 25mg PO, lopressor 5mg IVP x2. Cardio(Willian) rec Echo, TSH, A/C. TSH normal. Echo showing LVEF 55-60% , mildly dilated LA, mild-mod TR, RVSP 40-50mmHg. Troponins 0.02, 0.06; thought to be dt tachycardia-induced troponinemia. D/C home with holding irbesartan. PT eval determined low-risk for falls. Prescribed Eliquis 2.5mg dt age/weight. Stable for D/C home Date of Admission:07/31/19 Date of Discharge: 08/01/19 Minutes to complete discharge: 20 Discharge Summary Problems reviewed: Yes Reason For Visit: AFIB Condition: Stable - Instructions Diet, Activity, Other Instructions: You were evaluated in the hospital for an abnormal heart rhythm and fast heart rate, called Atrial fibrillation. Your condition improved after receiving a new medication, Metoprolol. Atrial fibrillation also increases your risk of future stroke, and in order to prevent it, you are started on a blood thinning medication called Eliquis. Metoprolol may also lower your blood pressure. Your blood pressure medications, Irbesartan and Hydrochlorothiazide were put on hold while you were here in the hospital. Please take your blood pressure measurements before re-starting Irbesartan and Hydrochlorothiazide, or follow up with your PCP/integrity consultant Dr. Barber before resuming it. Please take note of the following new medications: - Metoprolol Succinate[TOPROL XL] 25mg, twice a day - Apixaban[ELIQUIS] 2.5mg, twice a day Please follow up with the physicians below, in 1-2 weeks: - [employer](Dr Candido Barber): follow up to discuss your Atrial Fibrillation , use of Eliquis Additional Instructions: - fall risk: please avoid hazards, activities, and substances that increase your risk of falling. Eliquis increases your risk of bleeding. It is important that you come to the ED immediately after a fall for further evaluation, including a head CT scan. -Please come to the ED if with any worsening fever,chills, headache, dizziness, chest pain, shortness of breath, palpitations, or any new concerns noted. Referrals: Candido Barber MD [Primary Care Provider] - Disposition: HOME - Home Medications Comprehensive Discharge Medication List: Ambulatory Orders Folic Acid 1 mg PO DAILY 07/31/19 Methotrexate Sodium [Methotrexate] 2.5 mg PO GAITAN 07/31/19 Apixaban [Eliquis -] 2.5 mg PO BID #60 tablet 08/01/19 Metoprolol Succinate [Toprol XL -] 25 mg PO BID #60 tab.sr.24h 08/01/19 This patient is new to me today: No Emergency Visit: No Critical Care patient: No - Discharge Referral Referred to [facility] Med P.C.: No ATTENDING PHYSICIAN STATEMENT I saw and evaluated the patient. I reviewed the resident's note and discussed the case with the resident. I agree with the resident's findings and plan as documented. SUBJECTIVE: OBJECTIVE: ASSESSMENT AND PLAN:
== END 2019-08-01 14:40 | disposition home or self-care (01) | DRG 309 ==
LOC: JER 14:07 → JERBED 15:34
PROVIDERS: ADMIT Hospitalist; ATTEND Hospitalist
DX: I48.91 Unspecified atrial fibrillation (principal); Z68.1 Body mass index [BMI] 19.9 or less, adult; I10 Essential (primary) hypertension; E80.6 Other disorders of bilirubin metabolism; E78.5 Hyperlipidemia, unspecified; R63.4 Abnormal weight loss; L12.1 Cicatricial pemphigoid
CPT/HCPCS: 36415; 71045-TC-FY; 80048; 80053; 80061; 82550; 83721; 83735; 84100; 84436; 84443; 84484; 85025; 85610; 85730; 93005; 93010; 93306-TC; 97116-GP; 97161-GP; 99285-25; J7030

== ENCOUNTER 2019-11-10 10:35 | Inpatient (IN) | payer OTHER, MEDICARE ==
[2019-11-10 10:48] VITALS: BMI 17.1
--- NOTE | 2019-11-10 11:36 | PDOC ---
History of Present Illness - General Chief Complaint: Weakness Stated Complaint: Cold Symptoms Time Seen by Provider: 11/10/19 11:30 Past History - Past Medical History Allergies/Adverse Reactions: Allergies Allergy/AdvReac Type Severity Reaction Status Date / Time carrot Allergy Verified 11/10/19 10:47 Penicillins Allergy Verified 11/10/19 12:43 carrots Allergy Uncoded 11/10/19 10:47 raw celery Allergy Uncoded 11/10/19 10:47 Home Medications: Ambulatory Orders Folic Acid 1 mg PO DAILY 07/31/19 Methotrexate Sodium [Methotrexate] 15 mg PO GAITAN 07/31/19 Apixaban [Eliquis -] 2.5 mg PO BID #60 tablet 08/01/19 Hydrochlorothiazide [Hctz -] 12.5 mg PO DAILY 11/10/19 Metoprolol Succinate [Toprol XL -] 50 mg PO BID 11/10/19 Rosuvastatin [Crestor -] 5 mg PO HS 11/10/19 Levofloxacin [Levaquin] 500 mg PO DAILY #7 tablet 11/13/19 COPD: No HTN: Yes Hypercholesterolemia: Yes - Psycho Social/Smoking Cessation Hx Smoking History: Never smoked Hx Alcohol Use: No Drug/Substance Use Hx: No *Physical Exam - Vital Signs Last Vital Signs Temp Pulse Resp BP Pulse Ox 98.2 F 99 H 22 H 124/64 96 11/10/19 10:46 11/10/19 10:46 11/10/19 10:46 11/10/19 10:46 11/10/19 10:46 ED Treatment Course - LABORATORY CBC & Chemistry Diagram: 11/17/19 07:35 11/17/19 07:35 Medical Decision Making - Medical Decision Making 11/10/19 12:14 HPI: 89yo F hx HTN, HLD, 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 Hx obtained form pt, daughter, son-in-law, and grandson. ROS: Constitutional: Positive for fatigue, generalized weakness. Negative for chills, fever, diaphoresis. HENT: Positive for congestion. Negative for sore throat, rhinorrhea, congestion. Eyes: Positive for ocular cicatricial pemphigoid. Respiratory: Positive for cough. Negative for shortness of breath, and wheezing. Cardiovascular: Negative for chest pain, palpitations, and leg swelling. Gastrointestinal: Negative for abdominal pain, blood in stool, constipation, diarrhea, nausea, and vomiting. Genitourinary: Negative for dysuria, flank pain, and hematuria. Musculoskeletal: Negative for myalgias, back pain, and neck pain. Skin: Positive for R middle finger swelling, pain, warmth, and erythema spreading up dorsal hand. Neurological: Negative for light-headedness, dizziness, vertigo, syncope, weakness, numbness and headaches. Psychiatric/Behavioral: Negative for behavioral problems and confusion. PE: Gen: Alert, NAD, comfortable-appearing, wearing sunglasses HEENT: PERRL, EOMI, MMM, NCAT. No conjunctival pallor. Sclera are non-icteric. Wearing sunglasses. CV: Regular rate and rhythm. No murmurs, rubs, or gallops. PULM: No resp distress. CTAB, no wheezes, rales, or rhonchi. ABD: soft, NT/ND, no rebound tenderness or guarding, no CVA tenderness. BACK: No TTP of c/t/l-spine. No step-offs or deformities. MSK: No bony deformities. 2+ pulses in all extremities. NEURO: AAOx3. PERRL. No gross CN deficits. Strength and sensation grossly intact throughout. EXTREMITIES: No cyanosis. No clubbing. No edema. No calf tenderness. RUE: 2+ pulses. Sensation intact throughout. Compartments soft. 5/5 strength throughout. Normal ROM of shoulder, elbow, and wrist. Decreased ROM of R 3rd digit. R 3rd digit swollen, erythematous, tender, no purulence or drainage, no fluctuance; erythema spreads up dorsum of hand; no lymphatic streaking. PSYCH: Normal mood and thought pattern. SKIN: Warm and dry. Normal capillary refill. No jaundice. 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 Ddx: cellulitis, abscess, osteomyelitis. Generalized weakness ddx includes infection (hand, PNA, UTI), URI, flu, metabolic derangement, anemia, ACS/MT, arrhythmia, ICH/SAH, thyroid pathology, malignancy -Labs including cardiac profile, TSH, UA/UC, flu -EKG: sinus rhythm with PACs, IRBBB, 95bpm, PA interva 152ms, QTc 449ms, no e/o acute ischemia -CXR -XR hand/fingers -CTH -Vanc -Consult hand surgery Dr Blackwood -Dispo: admit for IV antibiotics and hand surgery eval 11/10/19 13:31 Labs reviewed. -Give Mg and K for K 2.8, Mg 1.7. Will most likely need additional K tonight. 11/10/19 14:34 CTH reviewed: no acute pathology CXR reviewed: no acute pathology XR R hand reviewed: soft tissue swelling of third digits. Loss of bone density with degenerative changes especially about DIP joints. May be destructive process involving DIP joint of R third digit where there is extensive swelling. A foreign body or soft tissue is not seen. If concerned about OM, 3-phase bone scan or MR may be of help. Spoke with Dr Cope for hand surgery. Will see tonight or tomorrow AM at latest. Admitted to Dr Duarte - signed out on phone. Dr Carrera in department now, per Dr Carrera and Dr Duarte, consult Dr Carrera for ID recommendations. Discharge - Discharge Information Problems reviewed: Yes Clinical Impression/Diagnosis: Cellulitis of right middle finger, Weakness Condition: Stable Disposition: RETIREMENT FACILITY - Admission Yes - Follow up/Referral - Patient Discharge Instructions - Post Discharge Activity
--- NOTE | 2019-11-10 12:28 | PDOC ---
Attending Attestation - Resident Resident Name: Nona Garciazabeth - ED Attending Attestation I have performed the following: I have examined & evaluated the patient, The case was reviewed & discussed with the resident, I agree w/resident's findings & plan, Exceptions are as noted - HPI HPI: 89 yo F history HTN, HL, ocular cicatricial pemphigoid, MVP presents with R middle finger swelling and pain. She was seen at an urgent care in late September for similar complaint. As per the grandson, they attempted to drain it, but only blood came out of it, no pus. She was placed on antibiotics, which improved her symptoms significantly. Now she presents with swelling of the same finger associated with redness, warmth, and pain. No known injury. - Physicial Exam PE: GENERAL: Awake, alert, and fully oriented, in no acute distress HEAD: No signs of trauma EYES: PERRLA, EOMI, sclera anicteric, conjunctiva clear ENT: Auricles normal inspection, hearing grossly normal, nares patent, oropharynx clear without exudates. Moist mucosa NECK: Normal ROM, supple, no lymphadenopathy, JVD, or masses LUNGS: Breath sounds equal, clear to auscultation bilaterally. No wheezes, and no crackles HEART: Regular rate and rhythm, normal S1 and S2, no murmurs, rubs or gallops ABDOMEN: Soft, nontender, normoactive bowel sounds. No guarding, no rebound. No masses EXTREMITIES: R third finger with significant edema, erythema, and tenderness to the distal phalanx and over the DIP joint. Dec ROM due to severe pain. +2 small lesions over the dorsal distal phalanx c/w history of prior attempt at drainage. +Erythema extending into the dorsum of the hand. No lymphatic streaking, no axillary LAD. Remainder of extremities with normal range of motion , no edema. No clubbing or cyanosis. No cords, erythema, or tenderness NEUROLOGICAL: Cranial nerves II through XII grossly intact. Normal speech. Motor and sensation intact SKIN: Warm, dry, normal turgor, no rashes. - Medical Decision Making Pt with cellulitis of R third finger, with extension of the erythema into the dorsum of the hand. No lymphatic streaking, no axillary LAD. Will treat with IV abx, and will consult with ortho/hand.
[2019-11-10 12:43] LABS: BASO % 0.4 % (0-2.0); EOS % 0.1 % (0-4.5); HEMATOCRIT 37.8 % (32.4-45.2); HEMOGLOBIN 13.1 GM/dL (10.7-15.3); LYMPH % 5.7 % (8-40); MCH 33.5 pg (25.7-33.7); MCHC 34.6 g/dl (32.0-36.0); MEAN CELL VOLUME 96.8 fl (80-96); MEAN PLT VOLUME 6.6 fl (7.5-11.1); MONO % 12.7 % (3.8-10.2); NEUT % 81.1 % (42.8-82.8); PLATELET COUNT 243 K/MM3 (134-434); RBC 3.91 M/mm3 (3.60-5.2); RDW 13.1 % (11.6-15.6); WHITE BLOOD COUNT 9.5 K/mm3 (4.0-10.0)
[2019-11-10] MEDS ORDERED: VANCOMYCIN 1 GM in D5W (PRE-DOCKED) 1,000 MG/250 ML IVPB ONE (12:44)
[2019-11-10] MEDS ORDERED: VANCOMYCIN 1 GRAM (PRE-DOCKED) 1,000 MG/250 ML BAG IVPB ONE (12:59)
[2019-11-10 13:02] LABS: INR 1.7 (0.83-1.09); PROTHROMBIN TIME (PATIENT) 20.2 SEC (9.7-13.0)
[2019-11-10 13:05] LABS: ACTIVATED PTT 34.9 SECONDS (25.2-36.5)
[2019-11-10 13:11] LABS: PHOSPHOROUS 2.4 mg/dL (2.5-4.9)
[2019-11-10 13:18] LABS: ALBUMIN 2.9 g/dl (3.4-5.0); CALCIUM 8.7 mg/dL (8.5-10.1); CREATININE 1.1 mg/dL (0.55-1.3); MAGNESIUM 1.7 mg/dL (1.8-2.4); TOT PROT 6.7 g/dl (6.4-8.2)
[2019-11-10 13:21] LABS: POTASSIUM 2.8 mmol/L (3.5-5.1)
[2019-11-10] MEDS ORDERED: MAGNESIUM OXIDE 400 MG TABLET (FP) PO ONE (13:25)
[2019-11-10] MEDS ORDERED: POTASSIUM CHLORIDE ORAL LIQUID 20 MEQ/15 ML PO ONE (13:25)
[2019-11-10] MEDS ORDERED: MAGNESIUM OXIDE 400 MG TABLET (FP) ONE (13:55)
[2019-11-10] MEDS ORDERED: POTASSIUM CHLORIDE ORAL LIQUID 20 MEQ/15 ML ONE (13:56)
--- NOTE | 2019-11-10 14:35 | CON.ID ---
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), and MVP with moderate mitral regurgitation presents from home with family came for R 3rd finger cellulitis going on for 1 month...getting worse according to the family patient had some type of drainage done on the finger which did not improve and now the finger looks worse daughter with the patient - History Source History Provided By: Patient, Family Member Limitations to Obtaining History: No Limitations - Alcohol/Substance Use Hx Alcohol Use: No - Smoking History Smoking history: Never smoked Home Medications - Allergies Allergies/Adverse Reactions: Allergies Allergy/AdvReac Type Severity Reaction Status Date / Time carrot Allergy Verified 11/10/19 10:47 Penicillins Allergy Verified 11/10/19 12:43 carrots Allergy Uncoded 11/10/19 10:47 raw celery Allergy Uncoded 11/10/19 10:47 - Home Medications Home Medications: Ambulatory Orders RX: Folic Acid 1 mg PO DAILY 07/31/19 RX: Methotrexate Sodium [Methotrexate] 15 mg PO GAITAN 07/31/19 RX: Apixaban [Eliquis -] 2.5 mg PO BID #60 tablet 08/01/19 Hydrochlorothiazide [Hctz -] 12.5 mg PO DAILY 11/10/19 RX: Metoprolol Succinate [Toprol XL -] 50 mg PO BID 11/10/19 Rosuvastatin [Crestor -] 5 mg PO HS 11/10/19 Review of Systems - Review of Systems Constitutional: reports: No Symptoms Eyes: reports: No Symptoms HENT: reports: No Symptoms Neck: reports: No Symptoms Cardiovascular: reports: No Symptoms Respiratory: reports: No Symptoms Gastrointestinal: reports: No Symptoms Genitourinary: reports: No Symptoms Musculoskeletal: reports: Joint Swelling Integumentary: reports: Erythema, Other (swelling of the finger) Neurological: reports: No Symptoms Endocrine: reports: No Symptoms Hematology/Lymphatic: reports: No Symptoms Psychiatric: reports: No Symptoms Physical Exam Vital Signs: Vital Signs Temperature 98.2 F 11/10/19 10:46 Pulse Rate 99 H 11/10/19 10:46 Respiratory Rate 22 H 11/10/19 10:46 Blood Pressure 124/64 11/10/19 10:46 O2 Sat by Pulse Oximetry (%) 96 11/10/19 10:46 Constitutional: Yes: Well Nourished, No Distress, Calm Eyes: Yes: Conjunctiva Clear Neck: Yes: Supple, Trachea Midline Cardiovascular: Yes: Regular Rate and Rhythm Respiratory: Yes: Regular, CTA Bilaterally Gastrointestinal: Yes: Normal Bowel Sounds, Soft Musculoskeletal: Yes: Other Extremities: Yes: Erythema, Other (finger erythema) Integumentary: Yes: Erythema Wound/Incision: Yes: Other Neurological: Yes: Alert, Oriented Psychiatric: Yes: Alert, Oriented Labs: CBC, BMP 11/10/19 12:33 11/10/19 12:33 Assessment/Plan Problem List - Problems (1) Cellulitis of right middle finger Code(s): L03.011 - CELLULITIS OF RIGHT FINGER (2) HLD (hyperlipidemia) Code(s): E78.5 - HYPERLIPIDEMIA, UNSPECIFIED (3) Hypertension Code(s): I10 - ESSENTIAL (PRIMARY) HYPERTENSION (4) Ocular cicatricial pemphigoid Code(s): L12.1 - CICATRICIAL PEMPHIGOID (5) Atrial fibrillation with rapid ventricular response Code(s): I48.91 - UNSPECIFIED ATRIAL FIBRILLATION plan i am going to start patient on abx hand need to see the patient might need drainage monitor cellulitis of the hand rest as per the team
[2019-11-10] MEDS ORDERED: AZTREONAM 1 GM in DEXTROSE 5%-WATER - 50 ML IVPB SCH (14:45)
[2019-11-10] MEDS ORDERED: AZTREONAM 1 GM VIAL (RESTRICTED TO ID) ONE (15:05)
[2019-11-10] MEDS: AZTREONAM 1 GM in DEXTROSE 5%-WATER - 50 ML IVPB SCH (15:38)
--- NOTE | 2019-11-10 16:51 | HP ---
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), and MVP with moderate mitral regurgitation presents from home with family came for R 3rd finger cellulitis going on for 1 month...getting worse - Past Medical History Cardiovascular: Yes: HTN, Hyperlipdemia, Mitral Insufficiency - Smoking History Smoking history: Never smoked - Alcohol/Substance Use Hx Alcohol Use: No Home Medications - Allergies Allergies/Adverse Reactions: Allergies Allergy/AdvReac Type Severity Reaction Status Date / Time carrot Allergy Verified 11/10/19 10:47 Penicillins Allergy Verified 11/10/19 12:43 carrots Allergy Uncoded 11/10/19 10:47 raw celery Allergy Uncoded 11/10/19 10:47 - Home Medications Home Medications: Ambulatory Orders Folic Acid 1 mg PO DAILY 07/31/19 Methotrexate Sodium [Methotrexate] 15 mg PO HE 07/31/19 Apixaban [Eliquis -] 2.5 mg PO BID #60 tablet 08/01/19 Hydrochlorothiazide [Hctz -] 12.5 mg PO DAILY 11/10/19 Metoprolol Succinate [Toprol XL -] 50 mg PO BID 11/10/19 Rosuvastatin [Crestor -] 5 mg PO HS 11/10/19 Physical Examination Vital Signs: Vital Signs Temperature 98.8 F 11/10/19 16:22 Pulse Rate 101 H 11/10/19 16:22 Respiratory Rate 18 11/10/19 16:22 Blood Pressure 138/59 L 11/10/19 16:22 O2 Sat by Pulse Oximetry (%) 98 11/10/19 16:22 Constitutional: Yes: No Distress HENT: Yes: Atraumatic Neck: Yes: Supple Cardiovascular: Yes: Regular Rate and Rhythm Respiratory: Yes: Rhonchi Gastrointestinal: Yes: Normal Bowel Sounds Extremities: Yes: Other (R 3rd finger cellulitis) Edema: No Neurological: Yes: Alert, Oriented Labs: CBC, BMP 11/10/19 12:33 11/10/19 12:33 Imaging - Results X-ray: Report Reviewed Problem List - Problems (1) Cellulitis of right middle finger Assessment/Plan: iv abx id and hand surgery consult Code(s): L03.011 - CELLULITIS OF RIGHT FINGER (2) HLD (hyperlipidemia) Assessment/Plan: on meds Code(s): E78.5 - HYPERLIPIDEMIA, UNSPECIFIED (3) Hypertension Assessment/Plan: on meds monitor Code(s): I10 - ESSENTIAL (PRIMARY) HYPERTENSION (4) Ocular cicatricial pemphigoid Assessment/Plan: on methotrexate Code(s): L12.1 - CICATRICIAL PEMPHIGOID (5) Atrial fibrillation with rapid ventricular response Assessment/Plan: on eliquis/bb Code(s): I48.91 - UNSPECIFIED ATRIAL FIBRILLATION Assessment/Plan Laboratory Tests 11/10/19 11/10/19 11/10/19 12:33 12:33 12:33 WBC RBC Hgb Hct MCV MCH MCHC RDW Plt Count MPV Absolute Neuts (auto) Neutrophils % Lymphocytes % Monocytes % Eosinophils % Basophils % Nucleated RBC % PT with INR 20.20 H INR 1.70 H PTT (Actin FS) 34.9 Sodium 136 Potassium 2.8 L* Chloride 96 L Carbon Dioxide 29 Anion Gap 10 BUN 21.0 H Creatinine 1.1 Est GFR (CKD-EPI)AfAm 51.91 Est GFR (CKD-EPI)NonAf 44.79 Random Glucose 118 H Calcium 8.7 Phosphorus 2.4 L Magnesium 1.7 L Total Bilirubin 2.0 H AST 26 ALT 18 Alkaline Phosphatase 68 Creatine Kinase 213 H Creatine Kinase Index 0.5 CK-MB (CK-2) 1.2 Troponin I 0.02 Total Protein 6.7 Albumin 2.9 L TSH 1.85 11/10/19 12:33 WBC 9.5 RBC 3.91 Hgb 13.1 Hct 37.8 MCV 96.8 H MCH 33.5 MCHC 34.6 RDW 13.1 Plt Count 243 MPV 6.6 L Absolute Neuts (auto) 7.7 Neutrophils % 81.1 Lymphocytes % 5.7 L D Monocytes % 12.7 H Eosinophils % 0.1 D Basophils % 0.4 Nucleated RBC % 0 PT with INR INR PTT (Actin FS) Sodium Potassium Chloride Carbon Dioxide Anion Gap BUN Creatinine Est GFR (CKD-EPI)AfAm Est GFR (CKD-EPI)NonAf Random Glucose Calcium Phosphorus Magnesium Total Bilirubin AST ALT Alkaline Phosphatase Creatine Kinase Creatine Kinase Index CK-MB (CK-2) Troponin I Total Protein Albumin TSH Active Medications Generic Name Dose Route Start Last Admin Trade Name Freq PRN Reason Stop Dose Admin Aztreonam 1 gm/ Dextrose 50 mls @ 100 mls/hr 11/10/19 15:00 11/10/19 15:38 IVPB 100 mls/hr 0300,1500 MINE Administration Protocol Active Medications Generic Name Dose Route Start Last Admin Trade Name Ramiro PRN Reason Stop Dose Admin Acetaminophen 650 mg 11/10/19 16:53 Tylenol - PO Q6H PRN FEVER Apixaban 2.5 mg 11/10/19 22:00 11/11/19 09:11 Eliquis - PO 2.5 mg BID MINE Administration Folic Acid 1 mg 11/11/19 10:00 11/11/19 09:11 Folic Acid - PO 1 mg DAILY MINE Administration Hydrochlorothiazide 12.5 mg 11/11/19 10:00 11/11/19 09:11 Hctz - PO 12.5 mg DAILY MINE Administration Aztreonam 1 gm/ Dextrose 50 mls @ 100 mls/hr 11/10/19 15:00 11/11/19 02:09 IVPB 100 mls/hr 0300,1500 MINE Administration Protocol Methotrexate 15 mg 11/16/19 10:00 Mexate - PO He@1000 MINE Metoprolol Succinate 50 mg 11/10/19 22:00 11/11/19 09:11 Toprol Xl - PO 50 mg BID MINE Administration Potassium Chloride 40 meq 11/11/19 06:00 11/11/19 06:20 K-Dur - PO 40 meq DAILY@0600 MINE Administration Rosuvastatin Calcium 5 mg 11/10/19 22:00 11/10/19 22:12 Crestor - PO 5 mg HS MINE Administration
[2019-11-10] MEDS ORDERED: ACETAMINOPHEN 325 MG TABLET (FP) PO PRN (16:53)
[2019-11-10 17:31] LABS: EPI CELLS 5.1 /HPF (0-5/HPF); HYALINE CASTS 8 /lpf (0-8); PH,URINE 6.5 (5.0-8.0); URINE APPEARANCE CLOUDY; URINE BACTERIA 26.7 /hpf (NEGATIVE); URINE BILIRUBIN NEGATIVE (NEGATIVE); URINE COLOR YELLOW; URINE GLUCOSE (UA) NEGATIVE (NEGATIVE); URINE KETONE NEGATIVE (NEGATIVE); URINE LEUK ESTERASE 1+ (NEGATIVE); URINE NITRITE NEGATIVE (NEGATIVE); URINE PROTEIN 1+ (NEGATIVE); URINE RBC 5 /hpf (0-4); URINE WBC 18 /hpf (0-5)
[2019-11-10] MEDS: APIXABAN 2.5 MG TABLET PO SCH (22:12)
[2019-11-10] MEDS: ROSUVASTATIN CA 5 MG TABLET (FP) PO SCH (22:12)
[2019-11-11] MEDS: AZTREONAM 1 GM in DEXTROSE 5%-WATER - 50 ML IVPB SCH ×2 (02:09→17:10)
[2019-11-11] MEDS: POTASSIUM CHLORIDE TABS 20 MEQ TABLET.ER (FP) PO SCH (06:20)
[2019-11-11 07:33] LABS: BASO % 0.3 % (0-2.0); EOS % 0.2 % (0-4.5); HEMATOCRIT 38.1 % (32.4-45.2); HEMOGLOBIN 13.3 GM/dL (10.7-15.3); MCH 33.4 pg (25.7-33.7); MCHC 34.8 g/dl (32.0-36.0); MEAN PLT VOLUME 7.1 fl (7.5-11.1); MONO % 11.8 % (3.8-10.2); NEUT % 81.7 % (42.8-82.8); PLATELET COUNT 279 K/MM3 (134-434); RBC 3.97 M/mm3 (3.60-5.2); RDW 12.8 % (11.6-15.6); WHITE BLOOD COUNT 7.1 K/mm3 (4.0-10.0)
[2019-11-11 07:47] LABS: ALBUMIN 2.8 g/dl (3.4-5.0); BILIRUBIN,TOTAL 1.7 mg/dL (0.2-1); BLOOD UREA NITROGEN 16.4 mg/dL (7-18); CALCIUM 8.9 mg/dL (8.5-10.1); POTASSIUM 3.1 mmol/L (3.5-5.1); TOT PROT 6.6 g/dl (6.4-8.2)
--- NOTE | 2019-11-11 09:02 | PN ---
Progress Note (short form) - Note Progress Note: Pt seen and examined. In short she is an 89 year old female patient with 1 month history of worsening pain and swelling of the right middle finger. No h/o trauma. No drainage. Denies any recent bug bite, no h/o gout. AVSS WBC normal PE Right middle finger is swollen, cellulitic, erythematous, tender over the distal phalanx. paranychium, and epinychium. No drainage, no obvious abscess. + intact flexion and extension of the entire right middle funger, DIP joint is stiff and painful to move. Nl rom rest of hand. Area of presumed cellulitis was circled since coming to the ER, including the dorsal aspect of the right hand. Now that area is , much improved, not cellulitic, not erythematous, non tender. X-rays Right hand, show no acute bony pathology. + severe Basal joint OA, index MPJ OA. No bone destruction. Imp 89 yo F pt with a 1 month (subacute) history of right middle finger cellulitis. Area of cellulitis getting smaller, improving. Likely no surgery necessary. Rec Admission NPO after midnight IV antibiotics Strict elevation right hand. Will reevaluate in the morning for possible I&D surgery tomorrow morning.
[2019-11-11] MEDS: HYDROCHLOROTHIAZIDE 12.5 MG CAPSULE (FP) PO SCH (09:11)
[2019-11-11] MEDS: FOLIC ACID 1 MG TABLET (FP) PO SCH (09:11)
[2019-11-11] MEDS: APIXABAN 2.5 MG TABLET PO SCH ×2 (09:11→21:18)
--- NOTE | 2019-11-11 09:19 | EKG ---
Test Reason : Blood Pressure : / mmHG Vent. Rate : 095 BPM Atrial Rate : 095 BPM P-R Int : 152 ms QRS Dur : 092 ms QT Int : 358 ms P-R-T Axes : 088 016 065 degrees QTc Int : 449 ms SINUS RHYTHM WITH PREMATURE ATRIAL COMPLEXES INCOMPLETE RIGHT BUNDLE BRANCH BLOCK ABNORMAL ECG Confirmed by Niko Simpson MD ([id number]) on 11/11/2019 9:19:09 AM Referred By: Confirmed By:Niko Simpson MD
--- NOTE | 2019-11-11 11:40 | CON.PULM ---
Consult Consult Specialty:: PULM/CCM Referred by:: Cardiology Reason for Consultation:: Hypoxemia - History of Present Illness Chief Complaint: Swollen right middle finger History of Present Illness: 89 F, AFib on Eliquis, HTN, HLD, MVP, MR, and ocular cicatricial pemphigoid maintained on Methotrexate. She is a life long non-smoker without significant second hand smoking history. 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 Admitted via the ER due to worsening swelling and pain of her right middle finger. Denies SOB, MARQUEZ, CP, cough, sputum, etc. When she was being examined earlier apparently noted to have a saturation of 90 % on RA. At present she is on 2 L NC O2 and her saturation is 100%. CXR: No acute pathology - History Source History Provided By: Patient Limitations to Obtaining History: No Limitations - Past Medical History Cardio/Vascular: Yes: AFIB, Mitral Insufficiency Pulmonary: No: Asthma, Bronchitis, Cancer, COPD, O2 Dependent, Pneumonia, Previously Intubated, Pulmonary Embolus, Pulmonary Fibrosis, Sleep Apnea - Alcohol/Substance Use Hx Alcohol Use: No - Smoking History Smoking history: Never smoked Home Medications - Allergies Allergies/Adverse Reactions: Allergies Allergy/AdvReac Type Severity Reaction Status Date / Time carrot Allergy Verified 11/10/19 10:47 Penicillins Allergy Verified 11/10/19 12:43 carrots Allergy Uncoded 11/10/19 10:47 raw celery Allergy Uncoded 11/10/19 10:47 - Home Medications Home Medications: Ambulatory Orders Folic Acid 1 mg PO DAILY 07/31/19 Methotrexate Sodium [Methotrexate] 15 mg PO GAITAN 07/31/19 Apixaban [Eliquis -] 2.5 mg PO BID #60 tablet 08/01/19 Hydrochlorothiazide [Hctz -] 12.5 mg PO DAILY 11/10/19 Metoprolol Succinate [Toprol XL -] 50 mg PO BID 11/10/19 Rosuvastatin [Crestor -] 5 mg PO HS 11/10/19 Review of Systems - Review of Systems Constitutional: reports: Malaise, Unintentional Wgt. Loss. denies: Chills, Fever, Night Sweats Eyes: reports: No Symptoms HENT: reports: No Symptoms Neck: reports: No Symptoms Cardiovascular: denies: Chest Pain, Edema, Palpitations, Shortness of Breath Respiratory: denies: Cough, Hemoptysis, Orthopnea, PND, Snoring, SOB, SOB on Exertion, Wheezing Gastrointestinal: reports: No Symptoms Genitourinary: reports: No Symptoms Breasts: reports: No Symptoms Reported Musculoskeletal: reports: Other (Right middle finger swelling and pain) Integumentary: reports: Blister, Change in Color, Erythema Neurological: reports: No Symptoms Endocrine: reports: No Symptoms Hematology/Lymphatic: reports: No Symptoms Psychiatric: reports: No Symptoms Physical Exam Vital Sings: Vital Signs Temperature 97.9 F 11/11/19 09:17 Pulse Rate 87 11/11/19 09:17 Respiratory Rate 11/11/19 09:17 Blood Pressure 129/93 11/11/19 09:17 O2 Sat by Pulse Oximetry (%) 98 11/11/19 06:14 Constitutional: Yes: No Distress, Calm, Thin Eyes: Yes: Conjunctiva Clear, EOM Intact HENT: Yes: Atraumatic, Normocephalic Neck: Yes: Supple, Trachea Midline Cardiovascular: Yes: Pulse Irregular Respiratory: Yes: Diminished, On Nasal O2. No: Accessory Muscle Use, Cough, Rales, Rhonchi, SOB, SOB on Exertion, Stridor, Tachypnea, Wheezes ...Inspection: Yes: WNL ...Clubbing: No Gastrointestinal: Yes: Normal Bowel Sounds, Soft Renal/: Yes: WNL Musculoskeletal: Yes: Joint Swelling, Other (Right middle finger erythema and swelling ) Extremities: Yes: WNL Edema: No Integumentary: Yes: Erythema Neurological: Yes: WNL, Alert, Oriented ...Motor Strength: WNL Psychiatric: Yes: WNL, Alert, Oriented Labs: CBC, BMP 11/11/19 05:30 11/11/19 05:30 Imaging - Results Chest X-ray: Report Reviewed, Image Reviewed Problem List - Problems (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 Assessment/Plan IMP: Transient hypoxemia, suspect spurious value PLAN: OK to continue supplemental O2 for now Ortho evaluation was noted ABX per ID Eliquis Will repeat saturation checks on RA Pre and POst ambulation prior to discharge Can have PFTs performed as an outpatient Thank you. Dr Way RHONDA Screen - RHONDA History Previously diagnosed with Sleep Apnea: No If Yes, currently using CPAP to treat your RHONDA: No - SNORING Do you snore loudly (enough to be heard thru closed doors)?: No - TIRED Do you often feel tired, fatigued, or sleepy during daytime?: Yes - OBSERVED Has anyone observed you stop breathing during your sleep?: No - BLOOD PRESSURE Do you have or are being treated for high blood pressure?: Yes - BMI Answer Y if weight exceeds amount listed for your height: No .: HEIGHT & WEIGHT (lbs): 4'10" 167lbs; 4'11" 175 lbs; 5'0" 179lbs;. 5 '1" 185lbs; 5'2" 191lbs; 5'3" 197lbs;. 5'4" 204lbs; 5'5" 210lbs; 5'6" 216lbs;. 5'7" 223lbs; 5'8" 230lbs; 5'9" 237lbs;. 5'10" 243lbs ; 5'11" 250lbs; 6' 258lbs;. 6'1" 265lbs; 6'2" 272lbs; 6'3" 279lbs ;. 6'4" 287lbs; 6'5" 295lbs - AGE Is your age over 50 yrs old?: Yes - NECK CIRCUMFERENCE Neck Circumference 40cm: No - GENDER Male: No - SCORE Total Score: 3 Score Interpretation: Intermediate Risk of RHONDA .: Interpretation: Score 0-2: Low Risk RHONDA. Score 3-4: Intermediate Risk RHONDA. Score 5-8: High Risk RHONDA
--- NOTE | 2019-11-11 14:11 | PN ---
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 - Current Medication List Current Medications: Active Medications Acetaminophen (Tylenol -) 650 mg PO Q6H PRN PRN Reason: FEVER Apixaban (Eliquis -) 2.5 mg PO BID [facility] Last Admin: 11/11/19 09:11 Dose: 2.5 mg Folic Acid (Folic Acid -) 1 mg PO DAILY [facility] Last Admin: 11/11/19 09:11 Dose: 1 mg Hydrochlorothiazide (Hctz -) 12.5 mg PO DAILY [facility] Last Admin: 11/11/19 09:11 Dose: 12.5 mg Aztreonam 1 gm/ Dextrose 50 mls @ 100 mls/hr IVPB 0300,1500 MINE; Protocol Last Admin: 11/11/19 02:09 Dose: 100 mls/hr Methotrexate (Mexate -) 15 mg PO He@1000 MINE Metoprolol Succinate (Toprol Xl -) 50 mg PO BID [facility] Last Admin: 11/11/19 09:11 Dose: 50 mg Potassium Chloride (K-Dur -) 40 meq PO DAILY@0600 [facility] Last Admin: 11/11/19 06:20 Dose: 40 meq Rosuvastatin Calcium (Crestor -) 5 mg PO HS [facility] Last Admin: 11/10/19 22:12 Dose: 5 mg - Objective Vital Signs: Vital Signs Temperature 97.9 F 11/11/19 09:17 Pulse Rate 87 11/11/19 09:17 Respiratory Rate 20 11/11/19 09:17 Blood Pressure 129/93 11/11/19 09:17 O2 Sat by Pulse Oximetry (%) 98 11/11/19 06:14 Constitutional: Yes: No Distress, Calm Cardiovascular: Yes: S1, S2 Respiratory: Yes: Regular, CTA Bilaterally Gastrointestinal: Yes: Normal Bowel Sounds, Soft Musculoskeletal: Yes: Other Extremities: Yes: Erythema Neurological: Yes: Alert, Oriented Psychiatric: Yes: Alert, Oriented Labs: CBC, BMP 11/11/19 05:30 11/11/19 05:30 INR, PTT INR 1.70 (0.83-1.09) H 11/10/19 12:33 Assessment/Plan Problem List - Problems (1) Cellulitis of right middle finger Code(s): L03.011 - CELLULITIS OF RIGHT FINGER (2) HLD (hyperlipidemia) Code(s): E78.5 - HYPERLIPIDEMIA, UNSPECIFIED (3) Hypertension Code(s): I10 - ESSENTIAL (PRIMARY) HYPERTENSION (4) Ocular cicatricial pemphigoid Code(s): L12.1 - CICATRICIAL PEMPHIGOID (5) Atrial fibrillation with rapid ventricular response Code(s): I48.91 - UNSPECIFIED ATRIAL FIBRILLATION plan abx await for final plan rest as per the team
--- NOTE | 2019-11-11 16:41 | PN ---
Progress Note, Physician - Current Medication List Current Medications: Active Medications Acetaminophen (Tylenol -) 650 mg PO Q6H PRN PRN Reason: FEVER Apixaban (Eliquis -) 2.5 mg PO BID [facility] Last Admin: 11/11/19 09:11 Dose: 2.5 mg Folic Acid (Folic Acid -) 1 mg PO DAILY [facility] Last Admin: 11/11/19 09:11 Dose: 1 mg Hydrochlorothiazide (Hctz -) 12.5 mg PO DAILY [facility] [place] Last Admin: 11/11/19 09:11 Dose: 12.5 mg Aztreonam 1 gm/ Dextrose 50 mls @ 100 mls/hr IVPB 0300,1500 [facility]; Protocol Last Admin: 11/11/19 02:09 Dose: 100 mls/hr Methotrexate (Mexate -) 15 mg PO He@1000 MINE Metoprolol Succinate (Toprol Xl -) 50 mg PO BID [facility] [place] Last Admin: 11/11/19 09:11 Dose: 50 mg Potassium Chloride (K-Dur -) 40 meq PO DAILY@0600 [facility] [place] Last Admin: 11/11/19 06:20 Dose: 40 meq Rosuvastatin Calcium (Crestor -) 5 mg PO HS [facility] [place] Last Admin: 11/10/19 22:12 Dose: 5 mg - Objective Vital Signs: Vital Signs Temperature 97.9 F 11/11/19 14:42 Pulse Rate 108 H 11/11/19 14:42 Respiratory Rate 20 11/11/19 14:42 Blood Pressure 134/85 11/11/19 14:42 O2 Sat by Pulse Oximetry (%) 98 11/11/19 06:14 Constitutional: Yes: No Distress HENT: Yes: Atraumatic Neck: Yes: Supple Cardiovascular: Yes: Regular Rate and Rhythm Respiratory: Yes: CTA Bilaterally Gastrointestinal: Yes: Normal Bowel Sounds Extremities: Yes: Other (R 3rd finger cellulitis) Edema: No Neurological: Yes: Alert Labs: CBC, BMP 11/11/19 05:30 11/11/19 05:30 INR, PTT INR 1.70 (0.83-1.09) H 11/10/19 12:33 Problem List - Problems (1) Cellulitis of right middle finger Assessment/Plan: iv abx id and hand surgery consult for i and d tomorrow Code(s): L03.011 - CELLULITIS OF RIGHT FINGER (2) HLD (hyperlipidemia) Assessment/Plan: on meds Code(s): E78.5 - HYPERLIPIDEMIA, UNSPECIFIED (3) Hypertension Code(s): I10 - ESSENTIAL (PRIMARY) HYPERTENSION (4) Ocular cicatricial pemphigoid Code(s): L12.1 - CICATRICIAL PEMPHIGOID (5) Atrial fibrillation with rapid ventricular response Code(s): I48.91 - UNSPECIFIED ATRIAL FIBRILLATION
[2019-11-11] MEDS ORDERED: AZTREONAM 1 GM VIAL (RESTRICTED TO ID) ONE (17:04)
[2019-11-11] MEDS ORDERED: DEXTROSE 5%-WATER - 50 ML IVPB ONE (17:04)
--- NOTE | 2019-11-11 20:43 | CONS ---
DATE OF CONSULTATION: 11/11/2019 REQUESTING PROVIDER: Antonietta Duarte MD CARDIOLOGY CONSULTATION CHIEF COMPLAINT: 1. Recent upper respiratory tract infection. 2. Inability to walk. 3. Mental confusion. Patient is an 89-year-old female with a history of hypertension, hypercholesterolemia, mitral valve prolapse, mitral regurgitation, history of ocular cicatricial pemphigoid, recently developed an upper respiratory tract infection with laryngitis. According to her grandson, she had been at the [facility] and after coming home she suddenly was unable to walk and complained of extreme weakness. There was no history of chills, fever, or night sweats. No history of shortness of breath reported. The symptoms persisted and she was brought to the emergency room. While she was in the emergency room she developed progressive confusion. Patient, back in July, had an episode of atrial fibrillation with rapid ventricular response and was hospitalized and was anticoagulated and later discharged. There is no history of chills, fever, or night sweats. She was noted to have swelling involving the right little finger. No history of diabetes mellitus. No history of recent dizziness, presyncope, or syncope. No history of focal weakness. PAST HISTORY: As mentioned in the history of present illness. SURGICAL HISTORY: Not available. SOCIAL HISTORY: , retired, has 1 daughter who is healthy. There is no history of smoking or excessive alcohol use. FAMILY HISTORY: Not available. ALLERGIES: As noted in the hospital record, are as follows: 1. PENICILLIN. 2. CARROTS. 3. RAW CELERY. MEDICATIONS: 1. Methotrexate 15 mg p.o. once a week. 2. Folic acid 1 mg p.o. daily. 3. Eliquis 2.5 mg p.o. b.i.d. 4. Hydrochlorothiazide 12.5 mg p.o. daily. 5. Metoprolol succinate 50 mg p.o. b.i.d. 6. Rosuvastatin 5 mg p.o. daily. REVIEW OF SYSTEMS: Constitutional: History of malaise, weakness. No history of chills, fevers, or night sweats documented. History of progressive, unintentional weight loss. HEENT: No history of headaches. See history of present illness regarding ocular pemphigoid, unable to obtain history of diplopia or blurred vision. No history of epistaxis, hoarseness, deafness, or tinnitus available. Cardiovascular: See history of present illness. Respiratory: See history of present illness. Gastrointestinal: No history of nausea, vomiting, melena, hematemesis is available. According to the daughter, she has had a good appetite. Neurologic: See history of present illness. Musculoskeletal: No history of myalgias or arthralgias has been documented. Genitourinary: No history of dysuria, frequency, or hematuria is available. PHYSICAL EXAMINATION: General: An 89-year-old female who is confused, both in time and space. She was easily arousable, was in no distress. There is no pallor, cyanosis, clubbing, or jaundice. Vital Signs: At 1718, blood pressure 127/94 mmHg, heart rate was recorded at 120 beats per minute, respirations were 20 per minute, oxygen saturation was 100% on 2 L, temperature 197.9oF. Neck: Supple, no jugular venous distention. Carotids are 2+. Upstrokes are normal. Unable to appreciate bruits or thyromegaly. Heart: PMI within the 5th intercostal space, no heaves or thrills. S1 was normal. S2 was split. Grade 1/6 ejection systolic murmur was heard at the 2nd right intercostal space ending in early systole. There is a faint apical systolic murmur, grade 1/6 that was poorly radiating. No gallops or rubs were heard. Lungs: Clear on auscultation. Abdomen: Soft, nontender, no hepatosplenomegaly or palpable masses were felt. Extremities: No calf tenderness or dependent edema. There was a fluctuant swelling involving the, over the interphalangeal joint of the right middle finger, which was slightly tender and fluctuant. There were deformities involving the interphalangeal joints of both hands. Pulses were equal. Dorsalis pedis and posterior tibial pulses were weak. LABORATORY DATA: 1. ECG on November 10, 2019, reported as sinus rhythm with premature atrial complexes, incomplete right bundle branch block. 2. X-ray of the right hand, 3-views of the right hand: Loss of bone density with degenerative changes about the DIP joints. There is a soft tissue swelling of the 3rd digit. This may be a destructive process involving the DIP joint of the right 3rd digit. There is extensive swelling. A foreign body or soft tissue is not seen. If one is concerned about osteomyelitis, 3-phase bone scan or MR would be helpful. 3. X-ray of the chest, impression: No acute chest pathology. 4. Head CT, impression: No evidence of acute intracranial pathology. 5. CBC November 11, 2019: WBC 7100, hemoglobin 13.3 g/dL, hematocrit 38.1%, platelet count 279,000. Differential: Neutrophils 1.7%, lymphocytes 6.0%, monocytes 11.8%, eosinophils 0.2%, basophils 0.3%. 6. Chemistry November 10, 2019: Sodium 136, potassium 2.8, chloride 96, CO2 29 mMol/L. 7. Calcium 8.7, magnesium 7.1 mg/dL. Total bilirubin is 2.0 mg/dL. 8. CK 217, troponin 0.02. 9. Repeat electrolytes November 11, 2019: Sodium 136, potassium 3.1, chloride 98, CO2 20 mMol/L. Total bilirubin is down to 1.7 mg/dL. Repeat magnesium is not available. IMPRESSION: 1. Recent upper respiratory tract infection/laryngitis, possibly viral. 2. Extreme weakness, lethargy, and in ability to stand. Etiology to be determined. A. Secondary to viral infection. B. Hypokalemia. 3. Mental confusion is most probably related to toxic and/or metabolic encephalopathy. 4. History of hypertension. Currently normotensive. 5. Paroxysmal atrial fibrillation. 6. History of unintentional weight loss, etiology to be determined. 7. Hypercholesterolemia. 8. 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 9. Mitral regurgitation. 10. Ocular pemphigoid. RECOMMENDATIONS: 1. Blood cultures. 2. Urine cultures and sensitivity. 3. Correction of hypokalemia. 4. Continue antihypertensive therapy. 5. Follow up ECG. 6. Evaluation of cachexia. PROGNOSIS: Critical. Thank you for your referral. MELODIE ALLISON M.D. [id number]
[2019-11-11] MEDS: ROSUVASTATIN CA 5 MG TABLET (FP) PO SCH (21:18)
[2019-11-12] MEDS ORDERED: DEXTROSE 5%-WATER - 50 ML IVPB ONE ×2 (02:57→14:26)
[2019-11-12] MEDS ORDERED: AZTREONAM 1 GM VIAL (RESTRICTED TO ID) ONE ×2 (02:57→14:26)
[2019-11-12] MEDS: AZTREONAM 1 GM in DEXTROSE 5%-WATER - 50 ML IVPB SCH ×2 (03:11→14:38)
[2019-11-12] MEDS ORDERED: DIPHTH,PERTUSS(ACELL),TET VAC 0.5 ML VIAL IM ONE (05:42)
--- NOTE | 2019-11-12 05:49 | FALL ---
Fall Exam - Event Witnessed fall: Yes Location of Fall: Patient Room Fall from: While ambulating - Pre-Fall Mental Status: Oriented (x1- at baseline) Current Medications: Current Medications Generic Name Dose Route Start Last Admin Trade Name Freq PRN Reason Stop Dose Admin Acetaminophen 650 mg 11/10/19 16:53 Tylenol - PO Q6H PRN FEVER Apixaban 2.5 mg 11/10/19 22:00 11/11/19 21:18 Eliquis - PO 2.5 mg BID [facility] Administration Folic Acid 1 mg 11/11/19 10:00 11/11/19 09:11 Folic Acid - PO 1 mg DAILY [facility] Administration Hydrochlorothiazide 12.5 mg 11/11/19 10:00 11/11/19 09:11 Hctz - PO 12.5 mg DAILY [facility] Administration Aztreonam 1 gm/ Dextrose 50 mls @ 100 mls/hr 11/10/19 15:00 11/12/19 03:11 IVPB 100 mls/hr 0300,1500 [facility] Administration Protocol Methotrexate 15 mg 11/16/19 10:00 Mexate - PO He@1000 [facility] Metoprolol Succinate 50 mg 11/10/19 22:00 11/11/19 21:18 Toprol Xl - PO 50 mg BID [facility] Administration Potassium Chloride 40 meq 11/11/19 06:00 11/11/19 06:20 K-Dur - PO 40 meq DAILY@0600 [facility] Administration Rosuvastatin Calcium 5 mg 11/10/19 22:00 11/11/19 21:18 Crestor - PO 5 mg HS [facility] Administration - Post-Fall Patient Outcome: Abrasion/Bruise (b/l knees. skin tear L-knee) Exam Findings: AAOx1- at baseline, atraumatic, normcephalic, PERRL, crusting to inner canthus, RR, S1 S2-split, systolic murmur, No G,R. Lungs- CTAB, Abd- Soft, BS present, Hip/Pelvic- nontender to palpation, Extremities- LROM, R hand/ R Finger erythema to dorsal aspect, swelling to R- finger #3. Integumentary- erythema to B/L knees, Skin tear to L- Knee with eccyhmosis. Treatment: Ice Pack Vital Signs: Vital Signs Temperature 98.5 F 11/12/19 03:23 Pulse Rate 103 H 11/12/19 03:23 Respiratory Rate 20 11/12/19 03:23 Blood Pressure 150/63 11/12/19 03:23 O2 Sat by Pulse Oximetry (%) 100 11/11/19 21:00 LOC Post-Fall: Oriented (x1) Identify factors for HIGH RISK for Head Injury: Pt on anticoagulant
--- NOTE | 2019-11-12 06:03 | HOSP ---
Subjective - Review of Symptoms Events since last encounter: Hospitalist Encounter Notified by the RN, that the patient had a witnessed fall onto both knees. The RN stated" the patient did not hit her head". Was asked to assess. Arrived to bedside, patient is lying supine on the bed, asleep but arousable. Patient is AAOx1- name only- at baseline per the RN. PE performed see EMR Physical Examination Vital Signs: Vital Signs Temperature 98.5 F 11/12/19 03:23 Pulse Rate 103 H 11/12/19 03:23 Respiratory Rate 11/12/19 03:23 Blood Pressure 150/63 11/12/19 03:23 O2 Sat by Pulse Oximetry (%) 100 11/11/19 21:00 Constitutional: Yes: No Distress, Calm Eyes: Yes: EOM Intact, PERRL, Other (crusting to inner canthus noted) HENT: Yes: WNL, Atraumatic, Normocephalic Neck: Yes: WNL, Supple, Trachea Midline Cardiovascular: Yes: Regular Rate and Rhythm, Murmur, S1, S2 (split) Respiratory: Yes: WNL, Regular, CTA Bilaterally Gastrointestinal: Yes: WNL, Normal Bowel Sounds, Soft ...Rectal Exam: Yes: Deferred Renal/: Yes: Incontinence Breast(s): Yes: WNL Musculoskeletal: Yes: Joint Swelling Extremities: Yes: Erythema Edema: No Peripheral Pulses WNL: Yes Integumentary: Yes: Bruising, Erythema, Skin Tear Wound/Incision: Yes: Open to air Neurological: Yes: Alert (name only-at baseline) ...Motor Strength: WNL Psychiatric: Yes: Alert (name only- at baseline) Labs: CBC, BMP 11/11/19 05:30 11/11/19 05:30 Laboratory Results - last 24 hr 11/11/19 11/11/19 05:30 05:30 WBC 7.1 RBC 3.97 Hgb 13.3 Hct 38.1 MCV 96.0 MCH 33.4 MCHC 34.8 RDW 12.8 Plt Count 279 MPV 7.1 L Absolute Neuts (auto) 5.8 Neutrophils % 81.7 Lymphocytes % 6.0 L Monocytes % 11.8 H Eosinophils % 0.2 D Basophils % 0.3 Nucleated RBC % 0 Sodium 136 Potassium 3.1 L Chloride 98 Carbon Dioxide 30 Anion Gap 9 BUN 16.4 Creatinine 1.0 Est GFR (CKD-EPI)AfAm 58.25 Est GFR (CKD-EPI)NonAf 50.26 Random Glucose 110 H Calcium 8.9 Total Bilirubin 1.7 H AST 26 ALT 18 Alkaline Phosphatase 69 Total Protein 6.6 Albumin 2.8 L Intake & Output 11/09/19 11/10/19 11/11/19 11/12/19 23:59 23:59 23:59 23:59 Intake Total 370 Balance 370 Weight 48.081 kg Current Medications Generic Name Dose Route Start Last Admin Trade Name Freq PRN Reason Stop Dose Admin Acetaminophen 650 mg 11/10/19 16:53 Tylenol - PO Q6H PRN FEVER Apixaban 2.5 mg 11/10/19 22:00 11/11/19 21:18 Eliquis - PO 2.5 mg BID [facility] Administration Diphtheria/Tetanus/Acell Pertussis 0.5 ml 11/12/19 05:42 Adacel Adolescent/Adult - IM 11/12/19 05:43 .ONCE ONE Folic Acid 1 mg 11/11/19 10:00 11/11/19 09:11 Folic Acid - PO 1 mg DAILY [facility] Administration Hydrochlorothiazide 12.5 mg 11/11/19 10:00 11/11/19 09:11 Hctz - PO 12.5 mg DAILY [facility] Administration Aztreonam 1 gm/ Dextrose 50 mls @ 100 mls/hr 11/10/19 15:00 11/12/19 03:11 IVPB 100 mls/hr 0300,1500 [facility] Administration Protocol Methotrexate 15 mg 11/16/19 10:00 Mexate - PO He@1000 [facility] Metoprolol Succinate 50 mg 11/10/19 22:00 11/11/19 21:18 Toprol Xl - PO 50 mg BID [facility] Administration Potassium Chloride 40 meq 11/11/19 06:00 11/11/19 06:20 K-Dur - PO 40 meq DAILY@0600 [facility] Administration Rosuvastatin Calcium 5 mg 11/10/19 22:00 11/11/19 21:18 Crestor - PO 5 mg HS [facility] Administration Hospitalist Encounter Outcome: spoke with patient's daughter Vero Smallwood via telephone (NOK), informed her of this morning's events. Received verbal permission to xray bilateral knees, and Head CT. Head CT, Xray of B/L knees-pending Fall Protocol #1 implemented, discussed with Analisa Ferris RN
[2019-11-12] MEDS: POTASSIUM CHLORIDE TABS 20 MEQ TABLET.ER (FP) PO SCH (06:17)
[2019-11-12] MEDS: APIXABAN 2.5 MG TABLET PO SCH ×2 (10:37→21:32)
[2019-11-12] MEDS: FOLIC ACID 1 MG TABLET (FP) PO SCH (10:37)
[2019-11-12] MEDS: HYDROCHLOROTHIAZIDE 12.5 MG CAPSULE (FP) PO SCH (10:37)
--- NOTE | 2019-11-12 12:23 | PN ---
Progress Note, Physician History of Present Illness: events noted patient stable spoke with daughter awaiting decision by hand - Current Medication List Current Medications: Active Medications Acetaminophen (Tylenol -) 650 mg PO Q6H PRN PRN Reason: FEVER Apixaban (Eliquis -) 2.5 mg PO BID [facility] Last Admin: 11/12/19 10:37 Dose: Not Given Diphtheria/Tetanus/Acell Pertussis (Adacel Adolescent/Adult -) 0.5 ml IM .ONCE ONE Stop: 11/12/19 05:43 Folic Acid (Folic Acid -) 1 mg PO DAILY [facility] Last Admin: 11/12/19 10:37 Dose: Not Given Hydrochlorothiazide (Hctz -) 12.5 mg PO DAILY [facility] Last Admin: 11/12/19 10:37 Dose: Not Given Aztreonam 1 gm/ Dextrose 50 mls @ 100 mls/hr IVPB 0300,1500 [facility]; Protocol Last Admin: 11/12/19 03:11 Dose: 100 mls/hr Methotrexate (Mexate -) 15 mg PO He@1000 [facility] Metoprolol Succinate (Toprol Xl -) 50 mg PO BID [facility] Last Admin: 11/12/19 10:37 Dose: Not Given Potassium Chloride (K-Dur -) 40 meq PO DAILY@0600 [facility] Last Admin: 11/12/19 06:17 Dose: 40 meq Rosuvastatin Calcium (Crestor -) 5 mg PO HS [facility] Last Admin: 11/11/19 21:18 Dose: 5 mg - Objective Vital Signs: Vital Signs Temperature 97.5 F L 11/12/19 09:39 Pulse Rate 70 11/12/19 09:39 Respiratory Rate 18 11/12/19 09:39 Blood Pressure 116/64 11/12/19 09:39 O2 Sat by Pulse Oximetry (%) 100 11/11/19 21:00 Constitutional: Yes: No Distress, Calm Cardiovascular: Yes: S1, S2 Respiratory: Yes: Regular, CTA Bilaterally Gastrointestinal: Yes: Normal Bowel Sounds, Soft Musculoskeletal: Yes: Other Extremities: Yes: Erythema (improving), Other Neurological: Yes: Alert, Oriented Psychiatric: Yes: Alert, Oriented Labs: CBC, BMP 11/11/19 05:30 11/11/19 05:30 INR, PTT INR 1.70 (0.83-1.09) H 11/10/19 12:33 Assessment/Plan Problem List - Problems (1) Cellulitis of right middle finger Code(s): L03.011 - CELLULITIS OF RIGHT FINGER (2) HLD (hyperlipidemia) Code(s): E78.5 - HYPERLIPIDEMIA, UNSPECIFIED (3) Hypertension Code(s): I10 - ESSENTIAL (PRIMARY) HYPERTENSION (4) Ocular cicatricial pemphigoid Code(s): L12.1 - CICATRICIAL PEMPHIGOID (5) Atrial fibrillation with rapid ventricular response Code(s): I48.91 - UNSPECIFIED ATRIAL FIBRILLATION plan abx await for final plan rest as per the team
--- NOTE | 2019-11-12 12:43 | PN ---
Progress Note (short form) - Note Progress Note: Pt seen and examined. Her right hand and middle finger cellulitis are improving dramatically. Big improvement over the past 24 hours. Less pain, better range of motion. No systemic symptoms. AVSS PE Right hand and wrist now free of any cellulitis Right middle finger also much improved. Area of cellulitis much smaller. + tender over the dorsal aspect of the right middle finger distal phalanx + 2 areas of a small amount of pus, superficial, getting smaller, resolving. Imp Right hand and wrist cellulitis now gone. Right middle finger cellulitis much improved. Rec No surgery necessary at this time (clinically much better, her age, general disposition, etc) Continue with IV antibiotics Continue elevation, and warm soaks 3x/day
--- NOTE | 2019-11-12 12:54 | PN ---
Progress Note, Physician History of Present Illness: PULMONARY ALERT,NO DISTRESS,-SOB. O2 SAT 96% - Current Medication List Current Medications: Active Medications Acetaminophen (Tylenol -) 650 mg PO Q6H PRN PRN Reason: FEVER Apixaban (Eliquis -) 2.5 mg PO BID [facility] Last Admin: 11/12/19 10:37 Dose: Not Given Diphtheria/Tetanus/Acell Pertussis (Adacel Adolescent/Adult -) 0.5 ml IM .ONCE ONE Stop: 11/12/19 05:43 Folic Acid (Folic Acid -) 1 mg PO DAILY [facility] Last Admin: 11/12/19 10:37 Dose: Not Given Hydrochlorothiazide (Hctz -) 12.5 mg PO DAILY [facility] Last Admin: 11/12/19 10:37 Dose: Not Given Aztreonam 1 gm/ Dextrose 50 mls @ 100 mls/hr IVPB 0300,1500 [facility]; Protocol Last Admin: 11/12/19 03:11 Dose: 100 mls/hr Methotrexate (Mexate -) 15 mg PO He@1000 [facility] Metoprolol Succinate (Toprol Xl -) 50 mg PO BID [facility] Last Admin: 11/12/19 10:37 Dose: Not Given Potassium Chloride (K-Dur -) 40 meq PO DAILY@0600 [facility] Last Admin: 11/12/19 06:17 Dose: 40 meq Rosuvastatin Calcium (Crestor -) 5 mg PO HS [facility] Last Admin: 11/11/19 21:18 Dose: 5 mg - Objective Vital Signs: Vital Signs Temperature 97.6 F 11/12/19 11:39 Pulse Rate 72 11/12/19 11:39 Respiratory Rate 18 11/12/19 11:39 Blood Pressure 118/61 11/12/19 11:39 O2 Sat by Pulse Oximetry (%) 100 11/11/19 21:00 Constitutional: Yes: Calm, Thin Eyes: Yes: WNL HENT: Yes: WNL Neck: Yes: WNL Cardiovascular: Yes: Pulse Irregular, S1, S2 Respiratory: Yes: Diminished Gastrointestinal: Yes: Normal Bowel Sounds, Soft Extremities: Yes: WNL Edema: No Labs: CBC, BMP 11/11/19 05:30 Assessment/Plan Problem List - Problems (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 Assessment/Plan IMP: Transient hypoxemia, suspect spurious value PLAN: supplemental O2 as needed ABX per ID Eliquis Will repeat saturation checks on RA Pre and Post ambulation prior to discharge Can have PFTs performed as an outpatient DR RECINOS RHONDA Screen - RHONDA History Previously diagnosed with Sleep Apnea: No If Yes, currently using CPAP to treat your RHONDA: No - SNORING Do you snore loudly (enough to be heard thru closed doors)?: No - TIRED Do you often feel tired, fatigued, or sleepy during daytime?: Yes - OBSERVED Has anyone observed you stop breathing during your sleep?: No - BLOOD PRESSURE Do you have or are being treated for high blood pressure?: Yes - BMI Answer Y if weight exceeds amount listed for your height: No .: HEIGHT & WEIGHT (lbs): 4'10" 167lbs; 4'11" 175 lbs; 5'0" 179lbs;. 5 '1" 185lbs; 5'2" 191lbs; 5'3" 197lbs;. 5'4" 204lbs; 5'5" 210lbs; 5'6" 216lbs;. 5'7" 223lbs; 5'8" 230lbs; 5'9" 237lbs;. 5'10" 243lbs ; 5'11" 250lbs; 6' 258lbs;. 6'1" 265lbs; 6'2" 272lbs; 6'3" 279lbs ;. 6'4" 287lbs; 6'5" 295lbs - AGE Is your age over 50 yrs old?: Yes - NECK CIRCUMFERENCE Neck Circumference 40cm: No - GENDER Male: No - SCORE Total Score: 3 Score Interpretation: Intermediate Risk of RHONDA .: Interpretation: Score 0-2: Low Risk RHONDA. Score 3-4: Intermediate Risk RHONDA. Score 5-8: High Risk RHONDA
--- NOTE | 2019-11-12 16:59 | PN ---
Progress Note, Physician - Current Medication List Current Medications: Active Medications Acetaminophen (Tylenol -) 650 mg PO Q6H PRN PRN Reason: FEVER Apixaban (Eliquis -) 2.5 mg PO BID [facility] Last Admin: 11/12/19 10:37 Dose: Not Given Diphtheria/Tetanus/Acell Pertussis (Adacel Adolescent/Adult -) 0.5 ml IM .ONCE ONE Stop: 11/12/19 05:43 Folic Acid (Folic Acid -) 1 mg PO DAILY [facility] Last Admin: 11/12/19 10:37 Dose: Not Given Hydrochlorothiazide (Hctz -) 12.5 mg PO DAILY [facility] Last Admin: 11/12/19 10:37 Dose: Not Given Aztreonam 1 gm/ Dextrose 50 mls @ 100 mls/hr IVPB 0300,1500 [facility]; Protocol Last Admin: 11/12/19 14:38 Dose: 100 mls/hr Methotrexate (Mexate -) 15 mg PO He@1000 [facility] Metoprolol Succinate (Toprol Xl -) 50 mg PO BID [facility] Last Admin: 11/12/19 10:37 Dose: Not Given Potassium Chloride (K-Dur -) 40 meq PO DAILY@0600 [facility] Last Admin: 11/12/19 06:17 Dose: 40 meq Rosuvastatin Calcium (Crestor -) 5 mg PO HS [facility] Last Admin: 11/11/19 21:18 Dose: 5 mg - Objective Vital Signs: Vital Signs Temperature 97.6 F 11/12/19 13:39 Pulse Rate 70 11/12/19 13:39 Respiratory Rate 18 11/12/19 13:39 Blood Pressure 116/60 11/12/19 13:39 O2 Sat by Pulse Oximetry (%) 100 11/11/19 21:00 Constitutional: Yes: No Distress HENT: Yes: Atraumatic Neck: Yes: Supple Cardiovascular: Yes: Regular Rate and Rhythm Respiratory: Yes: CTA Bilaterally Gastrointestinal: Yes: Normal Bowel Sounds Extremities: Yes: Other (R hand/finger cellulitis improving) Neurological: Yes: Alert Labs: CBC, BMP 11/11/19 05:30 11/11/19 05:30 INR, PTT INR 1.70 (0.83-1.09) H 11/10/19 12:33 Problem List - Problems (1) Cellulitis of right middle finger Assessment/Plan: iv abx warm compresses Code(s): L03.011 - CELLULITIS OF RIGHT FINGER (2) HLD (hyperlipidemia) Assessment/Plan: on meds Code(s): E78.5 - HYPERLIPIDEMIA, UNSPECIFIED (3) Hypertension Assessment/Plan: on meds monitor Code(s): I10 - ESSENTIAL (PRIMARY) HYPERTENSION (4) Ocular cicatricial pemphigoid Assessment/Plan: on methotrexate Code(s): L12.1 - CICATRICIAL PEMPHIGOID (5) Atrial fibrillation with rapid ventricular response Assessment/Plan: on eliquis/bb Code(s): I48.91 - UNSPECIFIED ATRIAL FIBRILLATION
--- NOTE | 2019-11-12 18:54 | PN ---
Progress Note (short form) - Note Progress Note: Patient remains confused, fell out of bed and underwent CT head, h/o recent URI and abscess of the rt. middle finger initially seen at a urgent care and treated with oral antibiotics. Developed extreme weakness and unable to stand and brought to the hospital. While in the ER became confused which persists.H/o progressive unintentional weight loss without loss of appetite. Long standing h/o HTN, HLD and recent episode atrial fib. Active Medications Acetaminophen (Tylenol -) 650 mg PO Q6H PRN PRN Reason: FEVER Apixaban (Eliquis -) 2.5 mg PO BID [facility] Last Admin: 11/12/19 10:37 Dose: Not Given Diphtheria/Tetanus/Acell Pertussis (Adacel Adolescent/Adult -) 0.5 ml IM .ONCE ONE Stop: 11/12/19 05:43 Folic Acid (Folic Acid -) 1 mg PO DAILY [facility] Last Admin: 11/12/19 10:37 Dose: Not Given Hydrochlorothiazide (Hctz -) 12.5 mg PO DAILY [facility] Last Admin: 11/12/19 10:37 Dose: Not Given Aztreonam 1 gm/ Dextrose 50 mls @ 100 mls/hr IVPB 0300,1500 [facility]; Protocol Last Admin: 11/12/19 14:38 Dose: 100 mls/hr Methotrexate (Mexate -) 15 mg PO He@1000 [facility] Metoprolol Succinate (Toprol Xl -) 50 mg PO BID [facility] Last Admin: 11/12/19 10:37 Dose: Not Given Potassium Chloride (K-Dur -) 40 meq PO DAILY@0600 [facility] Last Admin: 11/12/19 06:17 Dose: 40 meq Rosuvastatin Calcium (Crestor -) 5 mg PO HS [facility] Last Admin: 11/11/19 21:18 Dose: 5 mg Last Vital Signs Temp Pulse Resp BP Pulse Ox 97.8 F 80 18 128/70 100 11/12/19 15:39 11/12/19 15:39 11/12/19 15:39 11/12/19 15:39 11/11/19 21:00 NECK: Supple, no JVD. HEART: No heave or thrills, S1 and S2 are normal SEMII/Vi at the second RCS. LUNGS: clear. ABDOMEN: Soft, nontender, no organomegaly appreciated. EXTREMITIES: No calf tenderness or dependent edema.fluctuant lesion rt.middle. CBC, BMP 11/11/19 05:30 11/11/19 05:30 IMPRESSION: 1. Mental confusion,weakness, etiology to be determined: a). Encephalitis/ encephalopathy needs exclusion specially viral ie Herpes, fungal or crytogenic related to methotrexate b). Metabolic/ toxic related to recent URT infection / Laryngitis. 2. Progressive weght loss, etiology: carcinoma needs exclusion. 3. H/o paroxysmal atrial fib. 4. HTN. 5. Ocular cicatricial pemphigoid. 6. Fluctuant lesion on the rt. middle finger. consider herpes 7. HLD. 8. Malignancy needs to be ruled out. Recommendations: 1. Evaluation of fluid from the lesion on the right finger ie viral study and C/ S and cytology. 2. Correction of hypokalemia. 3. F/u CMP,CBC, ESR, CRP. 4. MRI of the brain as suggested by radiology. 5. Opthalmic evaluation. 6. F/u ECG. 8. Echocardiogram. Prognosis critical Candido Barber MD; FACC. Time spend 30 mins.
[2019-11-12] MEDS: ROSUVASTATIN CA 5 MG TABLET (FP) PO SCH (21:32)
[2019-11-13] MEDS ORDERED: DEXTROSE 5%-WATER - 50 ML IVPB ONE ×2 (02:46→16:00)
[2019-11-13] MEDS ORDERED: AZTREONAM 1 GM VIAL (RESTRICTED TO ID) ONE ×2 (02:46→16:00)
[2019-11-13] MEDS: AZTREONAM 1 GM in DEXTROSE 5%-WATER - 50 ML IVPB SCH ×2 (02:50→16:01)
[2019-11-13] MEDS: POTASSIUM CHLORIDE TABS 20 MEQ TABLET.ER (FP) PO SCH (06:23)
[2019-11-13] MEDS: FOLIC ACID 1 MG TABLET (FP) PO SCH (09:29)
[2019-11-13] MEDS: HYDROCHLOROTHIAZIDE 12.5 MG CAPSULE (FP) PO SCH (09:30)
[2019-11-13] MEDS: APIXABAN 2.5 MG TABLET PO SCH ×2 (09:30→21:48)
--- NOTE | 2019-11-13 09:44 | PN ---
Progress Note (short form) - Note Progress Note: Resting in NAD. No CP or SOB. No acute events overnight. Intake & Output 11/10/19 11/11/19 11/12/19 11/13/19 23:59 23:59 23:59 23:59 Intake Total 370 220 Output Total 300 Balance 370 -80 Weight 106 lb 106 lb Last Vital Signs Temp Pulse Resp BP Pulse Ox 97.8 F 85 20 113/58 L 96 11/13/19 09:00 11/13/19 09:00 11/13/19 09:00 11/13/19 09:00 11/12/19 21:00 Active Medications Acetaminophen (Tylenol -) 650 mg PO Q6H PRN PRN Reason: FEVER Apixaban (Eliquis -) 2.5 mg PO BID [facility] Last Admin: 11/13/19 09:30 Dose: 2.5 mg Diphtheria/Tetanus/Acell Pertussis (Adacel Adolescent/Adult -) 0.5 ml IM .ONCE ONE Stop: 11/12/19 05:43 Folic Acid (Folic Acid -) 1 mg PO DAILY [facility] Last Admin: 11/13/19 09:29 Dose: 1 mg Hydrochlorothiazide (Hctz -) 12.5 mg PO DAILY [facility] Last Admin: 11/13/19 09:30 Dose: 12.5 mg Aztreonam 1 gm/ Dextrose 50 mls @ 100 mls/hr IVPB 0300,1500 [facility]; Protocol Last Admin: 11/13/19 02:50 Dose: 100 mls/hr Methotrexate (Mexate -) 15 mg PO He@1000 [facility] Metoprolol Succinate (Toprol Xl -) 50 mg PO BID [facility] Last Admin: 11/13/19 09:30 Dose: 50 mg Potassium Chloride (K-Dur -) 40 meq PO DAILY@0600 [facility] Last Admin: 11/13/19 06:23 Dose: 40 meq Rosuvastatin Calcium (Crestor -) 5 mg PO HS [facility] Last Admin: 11/12/19 21:32 Dose: 5 mg Constitutional: Yes: Calm, Thin Eyes: Yes: WNL HENT: Yes: WNL Neck: Yes: WNL Cardiovascular: Yes: Pulse Irregular, S1, S2 Respiratory: Yes: Diminished Gastrointestinal: Yes: Normal Bowel Sounds, Soft Extremities: Yes: WNL Edema: No Labs: Assessment/Plan Problem List - Problems (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 Assessment/Plan IMP: Transient hypoxemia, suspect spurious value PLAN: supplemental O2 only as needed ABX per ID Eliquis Will repeat saturation checks on RA Pre and Post ambulation prior to discharge Can have PFTs performed as an outpatient Dr Way RHONDA Screen - RHONDA History Previously diagnosed with Sleep Apnea: No If Yes, currently using CPAP to treat your RHONDA: No - SNORING Do you snore loudly (enough to be heard thru closed doors)?: No - TIRED Do you often feel tired, fatigued, or sleepy during daytime?: Yes - OBSERVED Has anyone observed you stop breathing during your sleep?: No - BLOOD PRESSURE Do you have or are being treated for high blood pressure?: Yes - BMI Answer Y if weight exceeds amount listed for your height: No .: HEIGHT & WEIGHT (lbs): 4'10" 167lbs; 4'11" 175 lbs; 5'0" 179lbs;. 5 '1" 185lbs; 5'2" 191lbs; 5'3" 197lbs;. 5'4" 204lbs; 5'5" 210lbs; 5'6" 216lbs;. 5'7" 223lbs; 5'8" 230lbs; 5'9" 237lbs;. 5'10" 243lbs ; 5'11" 250lbs; 6' 258lbs;. 6'1" 265lbs; 6'2" 272lbs; 6'3" 279lbs ;. 6'4" 287lbs; 6'5" 295lbs - AGE Is your age over 50 yrs old?: Yes - NECK CIRCUMFERENCE Neck Circumference 40cm: No - GENDER Male: No - SCORE Total Score: 3 Score Interpretation: Intermediate Risk of RHONDA .: Interpretation: Score 0-2: Low Risk RHONDA. Score 3-4: Intermediate Risk RHONDA. 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
--- NOTE | 2019-11-13 10:26 | PN ---
Progress Note, Physician History of Present Illness: stable improving hand note noted - Current Medication List Current Medications: Active Medications Acetaminophen (Tylenol -) 650 mg PO Q6H PRN PRN Reason: FEVER Apixaban (Eliquis -) 2.5 mg PO BID [facility] Last Admin: 11/13/19 09:30 Dose: 2.5 mg Diphtheria/Tetanus/Acell Pertussis (Adacel Adolescent/Adult -) 0.5 ml IM .ONCE ONE Stop: 11/12/19 05:43 Folic Acid (Folic Acid -) 1 mg PO DAILY [facility] Last Admin: 11/13/19 09:29 Dose: 1 mg Hydrochlorothiazide (Hctz -) 12.5 mg PO DAILY [facility] Last Admin: 11/13/19 09:30 Dose: 12.5 mg Aztreonam 1 gm/ Dextrose 50 mls @ 100 mls/hr IVPB 0300,1500 [facility]; Protocol Last Admin: 11/13/19 02:50 Dose: 100 mls/hr Methotrexate (Mexate -) 15 mg PO He@1000 [facility] Metoprolol Succinate (Toprol Xl -) 50 mg PO BID [facility] Last Admin: 11/13/19 09:30 Dose: 50 mg Potassium Chloride (K-Dur -) 40 meq PO DAILY@0600 [facility] Last Admin: 11/13/19 06:23 Dose: 40 meq Rosuvastatin Calcium (Crestor -) 5 mg PO HS [facility] Last Admin: 11/12/19 21:32 Dose: 5 mg - Objective Vital Signs: Vital Signs Temperature 97.8 F 11/13/19 09:00 Pulse Rate 85 11/13/19 09:00 Respiratory Rate 20 11/13/19 09:00 Blood Pressure 113/58 L 11/13/19 09:00 O2 Sat by Pulse Oximetry (%) 96 11/12/19 21:00 Constitutional: Yes: No Distress, Calm Cardiovascular: Yes: S1, S2 Respiratory: Yes: Regular, CTA Bilaterally Gastrointestinal: Yes: Normal Bowel Sounds, Soft Musculoskeletal: Yes: WNL Extremities: Yes: Erythema (of the finger improving), Other Neurological: Yes: Alert, Oriented Labs: CBC, BMP 11/11/19 05:30 11/11/19 05:30 INR, PTT INR 1.70 (0.83-1.09) H 11/10/19 12:33 Assessment/Plan Problem List - Problems (1) Cellulitis of right middle finger Code(s): L03.011 - CELLULITIS OF RIGHT FINGER (2) HLD (hyperlipidemia) Code(s): E78.5 - HYPERLIPIDEMIA, UNSPECIFIED (3) Hypertension Code(s): I10 - ESSENTIAL (PRIMARY) HYPERTENSION (4) Ocular cicatricial pemphigoid Code(s): L12.1 - CICATRICIAL PEMPHIGOID (5) Atrial fibrillation with rapid ventricular response Code(s): I48.91 - UNSPECIFIED ATRIAL FIBRILLATION plan abx rest as per the team
--- NOTE | 2019-11-13 16:36 | PN ---
Progress Note, Physician History of Present Illness: stable - Current Medication List Current Medications: Active Medications Acetaminophen (Tylenol -) 650 mg PO Q6H PRN PRN Reason: FEVER Apixaban (Eliquis -) 2.5 mg PO BID [facility] Last Admin: 11/13/19 09:30 Dose: 2.5 mg Diphtheria/Tetanus/Acell Pertussis (Adacel Adolescent/Adult -) 0.5 ml IM .ONCE ONE Stop: 11/12/19 05:43 Folic Acid (Folic Acid -) 1 mg PO DAILY [facility] Last Admin: 11/13/19 09:29 Dose: 1 mg Hydrochlorothiazide (Hctz -) 12.5 mg PO DAILY [facility] Last Admin: 11/13/19 09:30 Dose: 12.5 mg Aztreonam 1 gm/ Dextrose 50 mls @ 100 mls/hr IVPB 0300,1500 [facility]; Protocol Last Admin: 11/13/19 16:01 Dose: 100 mls/hr Methotrexate (Mexate -) 15 mg PO He@1000 [facility] Metoprolol Succinate (Toprol Xl -) 50 mg PO BID [facility] Last Admin: 11/13/19 09:30 Dose: 50 mg Potassium Chloride (K-Dur -) 40 meq PO DAILY@0600 [facility] Last Admin: 11/13/19 06:23 Dose: 40 meq Rosuvastatin Calcium (Crestor -) 5 mg PO HS [facility] Last Admin: 11/12/19 21:32 Dose: 5 mg - Objective Vital Signs: Vital Signs Temperature 97.7 F 11/13/19 14:00 Pulse Rate 88 11/13/19 14:00 Respiratory Rate 20 11/13/19 13:00 Blood Pressure 146/88 11/13/19 14:00 O2 Sat by Pulse Oximetry (%) 96 11/13/19 09:00 Constitutional: Yes: No Distress HENT: Yes: Atraumatic Neck: Yes: Supple Cardiovascular: Yes: Regular Rate and Rhythm Respiratory: Yes: CTA Bilaterally Gastrointestinal: Yes: Normal Bowel Sounds Extremities: Yes: Other (R hand/finger cellulitis improving) Neurological: Yes: Alert, Oriented Labs: CBC, BMP 11/11/19 05:30 11/11/19 05:30 INR, PTT INR 1.70 (0.83-1.09) H 11/10/19 12:33 Problem List - Problems (1) Cellulitis of right middle finger Assessment/Plan: iv abx warm compresses Code(s): L03.011 - CELLULITIS OF RIGHT FINGER (2) HLD (hyperlipidemia) Assessment/Plan: on meds Code(s): E78.5 - HYPERLIPIDEMIA, UNSPECIFIED (3) Hypertension Assessment/Plan: on meds monitor Code(s): I10 - ESSENTIAL (PRIMARY) HYPERTENSION (4) Ocular cicatricial pemphigoid Code(s): L12.1 - CICATRICIAL PEMPHIGOID (5) Atrial fibrillation with rapid ventricular response Code(s): I48.91 - UNSPECIFIED ATRIAL FIBRILLATION
[2019-11-13 17:41] LABS: BASO % 0.6 % (0-2.0); EOS % 1.8 % (0-4.5); HEMATOCRIT 40.1 % (32.4-45.2); HEMOGLOBIN 13.7 GM/dL (10.7-15.3); LYMPH % 9.5 % (8-40); MCH 33.1 pg (25.7-33.7); MCHC 34.1 g/dl (32.0-36.0); MEAN CELL VOLUME 97.1 fl (80-96); MEAN PLT VOLUME 6.7 fl (7.5-11.1); MONO % 17.8 % (3.8-10.2); NEUT % 70.3 % (42.8-82.8); PLATELET COUNT 321 K/MM3 (134-434); RBC 4.13 M/mm3 (3.60-5.2); RDW 12.9 % (11.6-15.6)
[2019-11-13 18:10] LABS: ALBUMIN 2.6 g/dl (3.4-5.0); BILIRUBIN,TOTAL 0.6 mg/dL (0.2-1); BLOOD UREA NITROGEN 22.6 mg/dL (7-18); CALCIUM 8.8 mg/dL (8.5-10.1); POTASSIUM 3.4 mmol/L (3.5-5.1); TOT PROT 6.5 g/dl (6.4-8.2)
--- NOTE | 2019-11-13 19:41 | PN ---
Progress Note (short form) - Note Progress Note: Long-standing history of hypertension, hyper lipidemia, mitral valvular disease , recent episode of paroxysmal atrial fibrillation,admitted with weakness and inability to stand, and during hospitalization developed mental confusion. History of abscess of the rt. middle finger initially seen at a urgent care and treated with oral antibiotics. Progressive unintentional weight loss without loss of appetite. Remains confused, and still not able to stand. No history of chills, fever or night sweats. According to her daughter there are periods of clear mentation. The daughter states that methotrexate was discontinued approximately 3 weeks ago by her government clerk and she was to be reevaluated but because of her present condition is unable to visit her government clerk. Active Medications Acetaminophen (Tylenol -) 650 mg PO Q6H PRN PRN Reason: FEVER Apixaban (Eliquis -) 2.5 mg PO BID [facility] Last Admin: 11/13/19 09:30 Dose: 2.5 mg Diphtheria/Tetanus/Acell Pertussis (Adacel Adolescent/Adult -) 0.5 ml IM .ONCE ONE Stop: 11/12/19 05:43 Folic Acid (Folic Acid -) 1 mg PO DAILY [facility] Last Admin: 11/13/19 09:29 Dose: 1 mg Hydrochlorothiazide (Hctz -) 12.5 mg PO DAILY [facility] Last Admin: 11/13/19 09:30 Dose: 12.5 mg Aztreonam 1 gm/ Dextrose 50 mls @ 100 mls/hr IVPB 0300,1500 [facility]; Protocol Last Admin: 11/13/19 16:01 Dose: 100 mls/hr Methotrexate (Mexate -) 15 mg PO He@1000 [facility] Metoprolol Succinate (Toprol Xl -) 50 mg PO BID [facility] Last Admin: 11/13/19 09:30 Dose: 50 mg Potassium Chloride (K-Dur -) 40 meq PO DAILY@0600 [facility] Last Admin: 11/13/19 06:23 Dose: 40 meq Rosuvastatin Calcium (Crestor -) 5 mg PO HS [facility] Last Admin: 11/12/19 21:32 Dose: 5 mg Last Vital Signs Temp Pulse Resp BP Pulse Ox 97.7 F 86 20 128/46 L 96 11/13/19 14:00 11/13/19 17:00 11/13/19 17:00 11/13/19 17:00 11/13/19 09:00 NECK: Supple, no JVD. HEART: No heave or thrills, S1 and S2 are normal SEMII/Vi at the second RCS. LUNGS: clear. ABDOMEN: Soft, nontender, no organomegaly appreciated. EXTREMITIES: No calf tenderness or dependent edema.fluctuant lesion rt.middle. Laboratory Results - last 24 hr 11/13/19 11/13/19 16:33 17:20 WBC 5.0 RBC 4.13 Hgb 13.7 Hct 40.1 MCV 97.1 H MCH 33.1 MCHC 34.1 RDW 12.9 Plt Count 321 MPV 6.7 L Absolute Neuts (auto) 3.5 Neutrophils % 70.3 Lymphocytes % 9.5 D Monocytes % 17.8 H Eosinophils % 1.8 D Basophils % 0.6 Nucleated RBC % 0 Sodium 135 L Potassium 3.4 L Chloride 96 L Carbon Dioxide 33 H Anion Gap 5 L BUN 22.6 H Creatinine 1.0 Est GFR (CKD-EPI)AfAm 58.25 Est GFR (CKD-EPI)NonAf 50.26 Random Glucose 158 H Calcium 8.8 Total Bilirubin 0.6 AST 20 ALT 17 Alkaline Phosphatase 71 Total Protein 6.5 Albumin 2.6 L IMPRESSION: 1. Mental confusion,weakness, etiology to be determined: a). Encephalitis/ encephalopathy needs exclusion specially viral ie Herpes, fungal etc. while taking methotrexate. b). Metabolic/ toxic encephalopathy related to recent URT infection / Laryngitis 2. Progressive weght loss, etiology: carcinoma needs exclusion. 3. H/o paroxysmal atrial fib. 4. HTN. 5. Ocular cicatricial pemphigoid. 6. Fluctuant lesion on the rt. middle finger. consider herpes. 7. HLD. 8. Occult malignancy needs to be ruled out. 9. Persistent hypokalemia Recommendations: 1. Evaluation of fluid from the lesion on the right finger ie viral study and C/ S and cytology. 2. Correction of hypokalemia. 3. ESR, CRP, Lyme titers. 4. MRI of the brain as suggested by radiology. 5. Opthalmic evaluation. 6. F/u ECG. 7. Echocardiogram. 8. Neurological evaluation. Prognosis critical Candido Barber MD; FACC.
[2019-11-13] MEDS: ROSUVASTATIN CA 5 MG TABLET (FP) PO SCH (21:48)
[2019-11-14] MEDS ORDERED: AZTREONAM 1 GM VIAL (RESTRICTED TO ID) ONE (02:13)
[2019-11-14] MEDS ORDERED: DEXTROSE 5%-WATER - 50 ML IVPB ONE (02:13)
[2019-11-14] MEDS: AZTREONAM 1 GM in DEXTROSE 5%-WATER - 50 ML IVPB SCH (02:16)
[2019-11-14] MEDS: POTASSIUM CHLORIDE TABS 20 MEQ TABLET.ER (FP) PO SCH (06:05)
[2019-11-14] MEDS ORDERED: PT OWN MED DRAWER 7, Y5N ONE (09:49)
[2019-11-14] MEDS: HYDROCHLOROTHIAZIDE 12.5 MG CAPSULE (FP) PO SCH (09:51)
[2019-11-14] MEDS: FOLIC ACID 1 MG TABLET (FP) PO SCH (09:51)
[2019-11-14] MEDS: APIXABAN 2.5 MG TABLET PO SCH ×2 (09:51→22:00)
--- NOTE | 2019-11-14 10:44 | PN ---
Progress Note (short form) - Note Progress Note: Ortho Pt seen and examined- improving Selected Entries 11/14/19 06:00 Temperature 97.6 F Pulse Rate 93 H Respiratory 20 Rate Blood Pressure 156/73 Laboratory Tests 11/13/19 17:20 WBC 5.0 Hgb 13.7 Hct 40.1 Plt Count 321 right hand/middle finger- decr erythema, decr swelling, decr ttp, incr rom nvi a/p abx as per ID warm soaks elevation ROM exercises Orthopedically stable d/w Dr. Blackwood
--- NOTE | 2019-11-14 12:10 | PN ---
Progress Note, Physician History of Present Illness: stable finger looks much better - Current Medication List Current Medications: Active Medications Acetaminophen (Tylenol -) 650 mg PO Q6H PRN PRN Reason: FEVER Apixaban (Eliquis -) 2.5 mg PO BID [facility] Last Admin: 11/14/19 09:51 Dose: 2.5 mg Diphtheria/Tetanus/Acell Pertussis (Adacel Adolescent/Adult -) 0.5 ml IM .ONCE ONE Stop: 11/12/19 05:43 Folic Acid (Folic Acid -) 1 mg PO DAILY [facility] Last Admin: 11/14/19 09:51 Dose: 1 mg Hydrochlorothiazide (Hctz -) 12.5 mg PO DAILY [facility] Last Admin: 11/14/19 09:51 Dose: 12.5 mg Aztreonam 1 gm/ Dextrose 50 mls @ 100 mls/hr IVPB 0300,1500 [facility]; Protocol Last Admin: 11/14/19 02:16 Dose: 100 mls/hr Methotrexate (Mexate -) 15 mg PO He@1000 [facility] Metoprolol Succinate (Toprol Xl -) 50 mg PO BID [facility] Last Admin: 11/14/19 09:51 Dose: 50 mg Potassium Chloride (K-Dur -) 40 meq PO DAILY@0600 [facility] Last Admin: 11/14/19 06:05 Dose: 40 meq Rosuvastatin Calcium (Crestor -) 5 mg PO HS [facility] Last Admin: 11/13/19 21:48 Dose: 5 mg - Objective Vital Signs: Vital Signs Temperature 97.4 F L 11/14/19 10:00 Pulse Rate 80 11/14/19 10:00 Respiratory Rate 20 11/14/19 10:00 Blood Pressure 150/70 11/14/19 10:00 O2 Sat by Pulse Oximetry (%) 96 11/14/19 09:00 Constitutional: Yes: No Distress, Calm Cardiovascular: Yes: S1, S2 Respiratory: Yes: Regular, CTA Bilaterally Gastrointestinal: Yes: Soft Musculoskeletal: Yes: WNL Extremities: Yes: Erythema (of the finger nearly resolved), Other Neurological: Yes: Alert, Oriented Psychiatric: Yes: Alert, Oriented Labs: CBC, BMP 11/13/19 17:20 11/13/19 16:33 INR, PTT INR 1.70 (0.83-1.09) H 11/10/19 12:33 Assessment/Plan Problem List - Problems (1) Cellulitis of right middle finger Code(s): L03.011 - CELLULITIS OF RIGHT FINGER (2) HLD (hyperlipidemia) Code(s): E78.5 - HYPERLIPIDEMIA, UNSPECIFIED (3) Hypertension Code(s): I10 - ESSENTIAL (PRIMARY) HYPERTENSION (4) Ocular cicatricial pemphigoid Code(s): L12.1 - CICATRICIAL PEMPHIGOID (5) Atrial fibrillation with rapid ventricular response Code(s): I48.91 - UNSPECIFIED ATRIAL FIBRILLATION plan can change to oral levaquin for another 5 days patient can be d/dov can follow with hand rest as per the team
--- NOTE | 2019-11-14 14:39 | PN ---
Progress Note (short form) - Note Progress Note: Resting in NAD. No CP or SOB. No acute events overnight. Intake & Output 11/11/19 11/12/19 11/13/19 11/14/19 23:59 23:59 23:59 23:59 Intake Total 370 220 650 Output Total 300 Balance 370 -80 650 Weight 106 lb Last Vital Signs Temp Pulse Resp BP Pulse Ox 97.4 F L 80 20 150/70 96 11/14/19 10:00 11/14/19 10:00 11/14/19 10:00 11/14/19 10:00 11/14/19 09:00 Active Medications Acetaminophen (Tylenol -) 650 mg PO Q6H PRN PRN Reason: FEVER Apixaban (Eliquis -) 2.5 mg PO BID [facility] Last Admin: 11/14/19 09:51 Dose: 2.5 mg Diphtheria/Tetanus/Acell Pertussis (Adacel Adolescent/Adult -) 0.5 ml IM .ONCE ONE Stop: 11/12/19 05:43 Folic Acid (Folic Acid -) 1 mg PO DAILY [facility] Last Admin: 11/14/19 09:51 Dose: 1 mg Hydrochlorothiazide (Hctz -) 12.5 mg PO DAILY [facility] Last Admin: 11/14/19 09:51 Dose: 12.5 mg Levofloxacin (Levaquin -) 500 mg PO ONCE@0600 ONE Stop: 11/15/19 06:01 Levofloxacin (Levaquin -) 250 mg PO DAILY@0600 [facility] Methotrexate (Mexate -) 15 mg PO He@1000 [facility] Metoprolol Succinate (Toprol Xl -) 50 mg PO BID [facility] Last Admin: 11/14/19 09:51 Dose: 50 mg Potassium Chloride (K-Dur -) 40 meq PO DAILY@0600 [facility] Last Admin: 11/14/19 06:05 Dose: 40 meq Rosuvastatin Calcium (Crestor -) 5 mg PO HS [facility] Last Admin: 11/13/19 21:48 Dose: 5 mg Constitutional: Yes: Calm, Thin Eyes: Yes: WNL HENT: Yes: WNL Neck: Yes: WNL Cardiovascular: Yes: Pulse Irregular, S1, S2 Respiratory: Yes: Diminished Gastrointestinal: Yes: Normal Bowel Sounds, Soft Extremities: Yes: WNL Edema: No Labs: Laboratory Results - last 24 hr 11/13/19 11/13/19 16:33 17:20 WBC 5.0 RBC 4.13 Hgb 13.7 Hct 40.1 MCV 97.1 H MCH 33.1 MCHC 34.1 RDW 12.9 Plt Count 321 MPV 6.7 L Absolute Neuts (auto) 3.5 Neutrophils % 70.3 Lymphocytes % 9.5 D Monocytes % 17.8 H Eosinophils % 1.8 D Basophils % 0.6 Nucleated RBC % 0 Sodium 135 L Potassium 3.4 L Chloride 96 L Carbon Dioxide 33 H Anion Gap 5 L BUN 22.6 H Creatinine 1.0 Est GFR (CKD-EPI)AfAm 58.25 Est GFR (CKD-EPI)NonAf 50.26 Random Glucose 158 H Calcium 8.8 Total Bilirubin 0.6 AST 20 ALT 17 Alkaline Phosphatase 71 Total Protein 6.5 Albumin 2.6 L Assessment/Plan Problem List - Problems (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 Assessment/Plan IMP: Transient hypoxemia, suspect spurious value PLAN: supplemental O2 only as needed ABX per ID Eliquis Will repeat saturation checks on RA Pre and Post ambulation prior to discharge Can have PFTs performed as an outpatient Dr Way Problem List - Problems (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
--- NOTE | 2019-11-14 14:50 | PN ---
Progress Note, Physician History of Present Illness: stable - Current Medication List Current Medications: Active Medications Acetaminophen (Tylenol -) 650 mg PO Q6H PRN PRN Reason: FEVER Apixaban (Eliquis -) 2.5 mg PO BID [facility] Last Admin: 11/14/19 09:51 Dose: 2.5 mg Diphtheria/Tetanus/Acell Pertussis (Adacel Adolescent/Adult -) 0.5 ml IM .ONCE ONE Stop: 11/12/19 05:43 Folic Acid (Folic Acid -) 1 mg PO DAILY [facility] Last Admin: 11/14/19 09:51 Dose: 1 mg Hydrochlorothiazide (Hctz -) 12.5 mg PO DAILY [facility] Last Admin: 11/14/19 09:51 Dose: 12.5 mg Levofloxacin (Levaquin -) 500 mg PO ONCE@0600 ONE Stop: 11/15/19 06:01 Levofloxacin (Levaquin -) 250 mg PO DAILY@0600 [facility] Methotrexate (Mexate -) 15 mg PO He@1000 [facility] Metoprolol Succinate (Toprol Xl -) 50 mg PO BID [facility] Last Admin: 11/14/19 09:51 Dose: 50 mg Potassium Chloride (K-Dur -) 40 meq PO DAILY@0600 [facility] Last Admin: 11/14/19 06:05 Dose: 40 meq Rosuvastatin Calcium (Crestor -) 5 mg PO HS [facility] Last Admin: 11/13/19 21:48 Dose: 5 mg - Objective Vital Signs: Vital Signs Temperature 97.4 F L 11/14/19 10:00 Pulse Rate 80 11/14/19 10:00 Respiratory Rate 20 11/14/19 10:00 Blood Pressure 150/70 11/14/19 10:00 O2 Sat by Pulse Oximetry (%) 96 11/14/19 09:00 Constitutional: Yes: No Distress HENT: Yes: Atraumatic Neck: Yes: Supple Cardiovascular: Yes: Regular Rate and Rhythm Respiratory: Yes: CTA Bilaterally Gastrointestinal: Yes: Normal Bowel Sounds Extremities: Yes: Other (R middle finger dip joint still red and swollen) Neurological: Yes: Alert, Oriented Labs: CBC, BMP 11/13/19 17:20 11/13/19 16:33 INR, PTT INR 1.70 (0.83-1.09) H 11/10/19 12:33 Problem List - Problems (1) Cellulitis of right middle finger Assessment/Plan: po abx warm compresses Code(s): L03.011 - CELLULITIS OF RIGHT FINGER (2) HLD (hyperlipidemia) Assessment/Plan: on meds Code(s): E78.5 - HYPERLIPIDEMIA, UNSPECIFIED (3) Hypertension Assessment/Plan: on meds monitor Code(s): I10 - ESSENTIAL (PRIMARY) HYPERTENSION (4) Ocular cicatricial pemphigoid Code(s): L12.1 - CICATRICIAL PEMPHIGOID (5) Atrial fibrillation with rapid ventricular response Code(s): I48.91 - UNSPECIFIED ATRIAL FIBRILLATION
--- NOTE | 2019-11-14 17:32 | PN ---
Progress Note (short form) - Note Progress Note: Long-standing history of hypertension, hyper lipidemia, mitral valvular disease , recent episode of paroxysmal atrial fibrillation,admitted with weakness and inability to stand, and during hospitalization developed mental confusion. History of abscess of the rt. middle finger initially seen at a urgent care and treated with oral antibiotics. Progressive unintentional weight loss without loss of appetite. Patient was more alert and was able to recognize me. confusion in time and space persists. The daughter states that methotrexate was discontinued approximately 3 weeks ago by her testing engineer and she was to be reevaluated but because of her present condition is unable to visit her testing engineer. Active Medications Acetaminophen (Tylenol -) 650 mg PO Q6H PRN PRN Reason: FEVER Apixaban (Eliquis -) 2.5 mg PO BID [facility] Last Admin: 11/14/19 09:51 Dose: 2.5 mg Diphtheria/Tetanus/Acell Pertussis (Adacel Adolescent/Adult -) 0.5 ml IM .ONCE ONE Stop: 11/12/19 05:43 Folic Acid (Folic Acid -) 1 mg PO DAILY [facility] Last Admin: 11/14/19 09:51 Dose: 1 mg Hydrochlorothiazide (Hctz -) 12.5 mg PO DAILY [facility] Last Admin: 11/14/19 09:51 Dose: 12.5 mg Levofloxacin (Levaquin -) 500 mg PO ONCE@0600 ONE Stop: 11/15/19 06:01 Levofloxacin (Levaquin -) 250 mg PO DAILY@0600 [facility] Methotrexate (Mexate -) 15 mg PO He@1000 [facility] Metoprolol Succinate (Toprol Xl -) 50 mg PO BID [facility] Last Admin: 11/14/19 09:51 Dose: 50 mg Potassium Chloride (K-Dur -) 40 meq PO DAILY@0600 [facility] Last Admin: 11/14/19 06:05 Dose: 40 meq Rosuvastatin Calcium (Crestor -) 5 mg PO HS [facility] Last Admin: 11/13/19 21:48 Dose: 5 mg Last Vital Signs Temp Pulse Resp BP Pulse Ox 97.8 F 75 20 105/54 L 96 11/14/19 15:30 11/14/19 15:30 11/14/19 15:30 11/14/19 15:30 11/14/19 09:00 NECK: Supple, no JVD. HEART: No heave or thrills, S1 and S2 are normal SEMII/Vi at the second RCS. LUNGS: clear. ABDOMEN: Soft, nontender, no organomegaly appreciated. EXTREMITIES: No calf tenderness or dependent edema.fluctuant lesion rt.middle. CBC, BMP 11/13/19 17:20 11/13/19 16:33 IMPRESSION: 1. Mental confusion etiology to be determined: a). Encephalitis/ encephalopathy needs exclusion specially viral ie Herpes, fungal etc. while taking methotrexate. b). Metabolic/ toxic encephalopathy related to recent URT infection / Laryngitis 2. Progressive weght loss, etiology: carcinoma needs exclusion. 3. H/o paroxysmal atrial fib. 4. HTN. 5. Ocular cicatricial pemphigoid. 6. Fluctuant lesion on the rt. middle finger. consider herpes. 7. HLD. 8. Occult malignancy needs to be ruled out. 9. Persistent hypokalemia Recommendations: 1. Evaluation of fluid from the lesion on the right finger ie viral study and C/ S and cytology. 2. 3. ESR, CRP, Lyme titers. 4. MRI of the brain as suggested by radiology. 5. Opthalmic evaluation. 6. F/u ECG. 7. Echocardiogram. 8. Neurological evaluation. Prognosis critical Candido Barber MD; FACC.
--- NOTE | 2019-11-14 17:35 | PN ---
Progress Note (short form) - Note Progress Note: Long-standing history of hypertension, hyper lipidemia, mitral valvular disease , recent episode of paroxysmal atrial fibrillation,admitted with weakness and inability to stand, and during hospitalization developed mental confusion. History of abscess of the rt. middle finger initially seen at a urgent care and treated with oral antibiotics. Progressive unintentional weight loss without loss of appetite. Patient was more alert and was able to recognize me. confusion in time and space persists. The daughter states that methotrexate was discontinued approximately 3 weeks ago by her oracle brm developer and she was to be reevaluated but because of her present condition is unable to visit her oracle brm developer. Active Medications Acetaminophen (Tylenol -) 650 mg PO Q6H PRN PRN Reason: FEVER Apixaban (Eliquis -) 2.5 mg PO BID [facility] Last Admin: 11/14/19 09:51 Dose: 2.5 mg Diphtheria/Tetanus/Acell Pertussis (Adacel Adolescent/Adult -) 0.5 ml IM .ONCE ONE Stop: 11/12/19 05:43 Folic Acid (Folic Acid -) 1 mg PO DAILY [facility] Last Admin: 11/14/19 09:51 Dose: 1 mg Hydrochlorothiazide (Hctz -) 12.5 mg PO DAILY [facility] Last Admin: 11/14/19 09:51 Dose: 12.5 mg Levofloxacin (Levaquin -) 500 mg PO ONCE@0600 ONE Stop: 11/15/19 06:01 Levofloxacin (Levaquin -) 250 mg PO DAILY@0600 [facility] Methotrexate (Mexate -) 15 mg PO He@1000 [facility] Metoprolol Succinate (Toprol Xl -) 50 mg PO BID [facility] Last Admin: 11/14/19 09:51 Dose: 50 mg Potassium Chloride (K-Dur -) 40 meq PO DAILY@0600 [facility] Last Admin: 11/14/19 06:05 Dose: 40 meq Rosuvastatin Calcium (Crestor -) 5 mg PO HS [facility] Last Admin: 11/13/19 21:48 Dose: 5 mg Last Vital Signs Temp Pulse Resp BP Pulse Ox 97.8 F 75 20 105/54 L 96 11/14/19 15:30 11/14/19 15:30 11/14/19 15:30 11/14/19 15:30 11/14/19 09:00 NECK: Supple, no JVD. HEART: No heave or thrills, S1 and S2 are normal SEMII/Vi at the second RCS. LUNGS: clear. ABDOMEN: Soft, nontender, no organomegaly appreciated. EXTREMITIES: No calf tenderness or dependent edema.fluctuant lesion rt.middle. CBC, BMP 11/13/19 17:20 11/13/19 16:33 IMPRESSION: 1. Mental confusion etiology to be determined: a). Encephalitis/ encephalopathy needs exclusion specially viral ie Herpes, fungal etc. while taking methotrexate. b). Metabolic/ toxic encephalopathy related to recent URT infection / Laryngitis 2. Progressive weght loss, etiology: carcinoma needs exclusion. 3. H/o paroxysmal atrial fib. 4. HTN. 5. Ocular cicatricial pemphigoid. 6. Fluctuant lesion on the rt. middle finger. consider herpes. 7. HLD. 8. Occult malignancy needs to be ruled out. 9. Persistent hypokalemia Recommendations: 1. Need to confirm with the family regarding continuation of methotrexate( according to her daughter methotrexate was discontinued 3 weeks ago). 2. ESR, CRP, Lyme titers and BMP. 3. MRI of the brain as suggested by radiology. 4. Opthalmic evaluation. 5. F/u ECG. 6. Echocardiogram. 7. Neurological evaluation. Prognosis critical Candido Barber MD; FACC.
--- NOTE | 2019-11-14 19:20 | DS ---
Physical Examination Vital Signs: Vital Signs Temperature 97.8 F 11/14/19 15:30 Pulse Rate 75 11/14/19 15:30 Respiratory Rate 20 11/14/19 15:30 Blood Pressure 105/54 L 11/14/19 15:30 O2 Sat by Pulse Oximetry (%) 96 11/14/19 09:00 Labs: CBC, BMP 11/13/19 17:20 11/13/19 16:33 Discharge Summary Problems reviewed: Yes Reason For Visit: WEAKNESS,CELLULITIS OF RT MIDDLE FINGER Current Active Problems Cellulitis of right middle finger (Acute) HLD (hyperlipidemia) (Acute) Hypertension (Acute) Hypoxemia (Acute) Ocular cicatricial pemphigoid (Acute) Weakness (Acute) Condition: Stable - Instructions Diet, Activity, Other Instructions: warm compresses to R middle finger 3-4 times per day Referrals: Candido Barber MD [Primary Care Provider] - - Home Medications Comprehensive Discharge Medication List: Ambulatory Orders Folic Acid 1 mg PO DAILY 07/31/19 Methotrexate Sodium [Methotrexate] 15 mg PO GAITAN 07/31/19 Apixaban [Eliquis -] 2.5 mg PO BID #60 tablet 08/01/19 Hydrochlorothiazide [Hctz -] 12.5 mg PO DAILY 11/10/19 Metoprolol Succinate [Toprol XL -] 50 mg PO BID 11/10/19 Rosuvastatin [Crestor -] 5 mg PO HS 11/10/19 Levofloxacin [Levaquin] 500 mg PO DAILY #7 tablet 11/13/19 wv snf
[2019-11-14] MEDS: ROSUVASTATIN CA 5 MG TABLET (FP) PO SCH (22:00)
[2019-11-15] MEDS: POTASSIUM CHLORIDE TABS 20 MEQ TABLET.ER (FP) PO SCH (06:12)
--- NOTE | 2019-11-15 09:05 | PN ---
Progress Note (short form) - Note Progress Note: PULMONARY Denies shortness of breath, cough, chest pain. Vital Signs Period Temp Pulse Resp BP Sys/Lee Pulse Ox Last 24 Hr 97.4 F-98.1 F 62-80 20-20 98-150/54-82 Gen: NAD at rest Heart: RRR Lung: decreased breath sounds at the bases Abd: soft, nontender Ext: no edema CBC, BMP 11/13/19 17:20 11/13/19 16:33 Active Medications Acetaminophen (Tylenol -) 650 mg PO Q6H PRN PRN Reason: FEVER Apixaban (Eliquis -) 2.5 mg PO BID [facility] Last Admin: 11/14/19 22:00 Dose: 2.5 mg Diphtheria/Tetanus/Acell Pertussis (Adacel Adolescent/Adult -) 0.5 ml IM .ONCE ONE Stop: 11/12/19 05:43 Folic Acid (Folic Acid -) 1 mg PO DAILY [facility] Last Admin: 11/14/19 09:51 Dose: 1 mg Hydrochlorothiazide (Hctz -) 12.5 mg PO DAILY [facility] Last Admin: 11/14/19 09:51 Dose: 12.5 mg Levofloxacin (Levaquin -) 250 mg PO DAILY@0600 [facility] Methotrexate (Mexate -) 15 mg PO He@1000 [facility] Metoprolol Succinate (Toprol Xl -) 50 mg PO BID [facility] Last Admin: 11/14/19 22:00 Dose: 50 mg Potassium Chloride (K-Dur -) 40 meq PO DAILY@0600 [facility] Last Admin: 11/15/19 06:12 Dose: 40 meq Rosuvastatin Calcium (Crestor -) 5 mg PO HS [facility] Last Admin: 11/14/19 22:00 Dose: 5 mg A/P Altered Mental Status Hypoxia resoved Paroxysmal Atrial Fibrillation HTN Hyperlipidemia Finger Cellulitis - rate controlled - continue anticoagulation - complete antibiotics - monitor SpO2
[2019-11-15] MEDS: FOLIC ACID 1 MG TABLET (FP) PO SCH (09:56)
[2019-11-15] MEDS: APIXABAN 2.5 MG TABLET PO SCH ×2 (09:56→21:03)
[2019-11-15] MEDS: HYDROCHLOROTHIAZIDE 12.5 MG CAPSULE (FP) PO SCH (09:56)
[2019-11-15] MEDS ORDERED: levoFLOXacin 750 MG TABLET PO SCH (10:00)
--- NOTE | 2019-11-15 12:19 | PN ---
Progress Note (short form) - Note Progress Note: Ortho Pt seen and examined- improving Selected Entries 11/15/19 09:00 Temperature 97.9 F Pulse Rate 78 Respiratory 20 Rate Blood Pressure 115/67 Laboratory Tests 11/13/19 17:20 WBC 5.0 Hgb 13.7 Hct 40.1 Plt Count 321 right hand/middle finger- decr erythema, decr swelling, decr ttp, incr rom nvi a/p abx as per ID warm soaks elevation ROM exercises Orthopedically stable d/w Dr. Cope
--- NOTE | 2019-11-15 16:33 | PN ---
Progress Note, Physician History of Present Illness: Pt states her Rt hand is doing much better. Edema/erythema resolving. Rt middle finger tip with mild erythema. - Current Medication List Current Medications: Active Medications Acetaminophen (Tylenol -) 650 mg PO Q6H PRN PRN Reason: FEVER Apixaban (Eliquis -) 2.5 mg PO BID [facility] Last Admin: 11/15/19 09:56 Dose: 2.5 mg Diphtheria/Tetanus/Acell Pertussis (Adacel Adolescent/Adult -) 0.5 ml IM .ONCE ONE Stop: 11/12/19 05:43 Folic Acid (Folic Acid -) 1 mg PO DAILY [facility] Last Admin: 11/15/19 09:56 Dose: 1 mg Hydrochlorothiazide (Hctz -) 12.5 mg PO DAILY [facility] Last Admin: 11/15/19 09:56 Dose: 12.5 mg Levofloxacin (Levaquin -) 250 mg PO DAILY@0600 [facility] Methotrexate (Mexate -) 15 mg PO He@1000 [facility] Metoprolol Succinate (Toprol Xl -) 50 mg PO BID [facility] Last Admin: 11/15/19 09:56 Dose: 50 mg Potassium Chloride (K-Dur -) 40 meq PO DAILY@0600 [facility] Last Admin: 11/15/19 06:12 Dose: 40 meq Rosuvastatin Calcium (Crestor -) 5 mg PO HS [facility] Last Admin: 11/14/19 22:00 Dose: 5 mg - Objective Vital Signs: Vital Signs Temperature 97.9 F 11/15/19 09:00 Pulse Rate 78 11/15/19 09:00 Respiratory Rate 20 11/15/19 09:00 Blood Pressure 115/67 11/15/19 09:00 O2 Sat by Pulse Oximetry (%) 96 11/14/19 09:00 Constitutional: Yes: No Distress, Calm Respiratory: Yes: Regular Gastrointestinal: Yes: Normal Bowel Sounds, Soft Genitourinary: Yes: WNL Extremities: Yes: Erythema (improved Rt hand erythema, Rt 4th DIP with mild erythema/edema) Labs: CBC, BMP 11/13/19 17:20 11/13/19 16:33 INR, PTT INR 1.70 (0.83-1.09) H 11/10/19 12:33 Problem List - Problems (1) Cellulitis of right middle finger Code(s): L03.011 - CELLULITIS OF RIGHT FINGER (2) HLD (hyperlipidemia) Code(s): E78.5 - HYPERLIPIDEMIA, UNSPECIFIED (3) Hypertension Code(s): I10 - ESSENTIAL (PRIMARY) HYPERTENSION (4) Ocular cicatricial pemphigoid Code(s): L12.1 - CICATRICIAL PEMPHIGOID (5) Weakness Code(s): R53.1 - WEAKNESS (6) Atrial fibrillation with rapid ventricular response Code(s): I48.91 - UNSPECIFIED ATRIAL FIBRILLATION Assessment/Plan Rt hand/middle finger cellulitis -- improving -- continue levaquin, compress -- f/u with Orthopedics
--- NOTE | 2019-11-15 17:50 | PN ---
Progress Note, Physician - Current Medication List Current Medications: Active Medications Acetaminophen (Tylenol -) 650 mg PO Q6H PRN PRN Reason: FEVER Apixaban (Eliquis -) 2.5 mg PO BID [facility] Last Admin: 11/15/19 09:56 Dose: 2.5 mg Diphtheria/Tetanus/Acell Pertussis (Adacel Adolescent/Adult -) 0.5 ml IM .ONCE ONE Stop: 11/12/19 05:43 Folic Acid (Folic Acid -) 1 mg PO DAILY [facility] Last Admin: 11/15/19 09:56 Dose: 1 mg Hydrochlorothiazide (Hctz -) 12.5 mg PO DAILY [facility] Last Admin: 11/15/19 09:56 Dose: 12.5 mg Levofloxacin (Levaquin -) 250 mg PO DAILY@0600 [facility] Methotrexate (Mexate -) 15 mg PO He@1000 [facility] Metoprolol Succinate (Toprol Xl -) 50 mg PO BID [facility] Last Admin: 11/15/19 09:56 Dose: 50 mg Potassium Chloride (K-Dur -) 40 meq PO DAILY@0600 [facility] Last Admin: 11/15/19 06:12 Dose: 40 meq Rosuvastatin Calcium (Crestor -) 5 mg PO HS [facility] Last Admin: 11/14/19 22:00 Dose: 5 mg - Objective Vital Signs: Vital Signs Temperature 97.9 F 11/15/19 09:00 Pulse Rate 78 11/15/19 09:00 Respiratory Rate 20 11/15/19 09:00 Blood Pressure 115/67 11/15/19 09:00 O2 Sat by Pulse Oximetry (%) 96 11/14/19 09:00 Constitutional: Yes: No Distress HENT: Yes: Atraumatic Neck: Yes: Supple Cardiovascular: Yes: Regular Rate and Rhythm Respiratory: Yes: CTA Bilaterally Gastrointestinal: Yes: Normal Bowel Sounds Extremities: Yes: Other (cellulitis hand much improved) Neurological: Yes: Alert, Oriented Labs: CBC, BMP 11/13/19 17:20 11/13/19 16:33 INR, PTT INR 1.70 (0.83-1.09) H 11/10/19 12:33 Problem List - Problems (1) Cellulitis of right middle finger Assessment/Plan: po abx warm compresses improving Code(s): L03.011 - CELLULITIS OF RIGHT FINGER (2) HLD (hyperlipidemia) Assessment/Plan: on meds Code(s): E78.5 - HYPERLIPIDEMIA, UNSPECIFIED (3) Hypertension Assessment/Plan: on meds monitor Code(s): I10 - ESSENTIAL (PRIMARY) HYPERTENSION (4) Ocular cicatricial pemphigoid Code(s): L12.1 - CICATRICIAL PEMPHIGOID (5) Atrial fibrillation with rapid ventricular response Code(s): I48.91 - UNSPECIFIED ATRIAL FIBRILLATION Assessment/Plan awaiting placement
--- NOTE | 2019-11-15 18:02 | PN ---
Progress Note (short form) - Note Progress Note: Long-standing history of hypertension, hyper lipidemia, mitral valvular disease , recent episode of paroxysmal atrial fibrillation,admitted with weakness and inability to stand, and during hospitalization developed mental confusion. History of abscess of the rt. middle finger initially seen at a urgent care and treated with oral antibiotics. Progressive unintentional weight loss without loss of appetite. Patiet is alert and is aware where she is. NO sOB, no SOB, tolerating medications . Active Medications Acetaminophen (Tylenol -) 650 mg PO Q6H PRN PRN Reason: FEVER Apixaban (Eliquis -) 2.5 mg PO BID [facility] Last Admin: 11/15/19 09:56 Dose: 2.5 mg Diphtheria/Tetanus/Acell Pertussis (Adacel Adolescent/Adult -) 0.5 ml IM .ONCE ONE Stop: 11/12/19 05:43 Folic Acid (Folic Acid -) 1 mg PO DAILY [facility] Last Admin: 11/15/19 09:56 Dose: 1 mg Hydrochlorothiazide (Hctz -) 12.5 mg PO DAILY [facility] Last Admin: 11/15/19 09:56 Dose: 12.5 mg Levofloxacin (Levaquin -) 250 mg PO DAILY@0600 [facility] Methotrexate (Mexate -) 15 mg PO He@1000 [facility] Metoprolol Succinate (Toprol Xl -) 50 mg PO BID [facility] Last Admin: 11/15/19 09:56 Dose: 50 mg Potassium Chloride (K-Dur -) 40 meq PO DAILY@0600 [facility] Last Admin: 11/15/19 06:12 Dose: 40 meq Rosuvastatin Calcium (Crestor -) 5 mg PO HS [facility] Last Admin: 11/14/19 22:00 Dose: 5 mg Last Vital Signs Temp Pulse Resp BP Pulse Ox 97.9 F 78 20 115/67 96 11/15/19 09:00 11/15/19 09:00 11/15/19 09:00 11/15/19 09:00 11/14/19 09:00 NECK: Supple, no JVD. HEART: No heave or thrills, S1 and S2 are normal SEMII/Vi at the second RCS. LUNGS: clear. ABDOMEN: Soft, nontender, no organomegaly appreciated. EXTREMITIES: No calf tenderness or dependent edema.fluctuant lesion rt.middle. CBC, BMP 11/13/19 17:20 11/13/19 16:33 IMPRESSION: 1. Mental confusion etiology to be determined: a). Metabolic/ toxic encephalopathy related to recent URT infection / Laryngitis. 2. Progressive weght loss, etiology: needs to be determined. 3. H/o paroxysmal atrial fib. 4. HTN. 5. Ocular cicatricial pemphigoid. 6. Fluctuant lesion on the rt. middle finger. consider herpes. 7. HLD. 8. Occult malignancy needs to be ruled out. 9. Persistent hypokalemia Recommendations: 1. Need to confirm with the family regarding continuation of methotrexate( according to her daughter methotrexate was discontinued 3 weeks ago). 2. ESR, CRP, Lyme titers and BMP. 3. MRI of the brain as suggested by radiology. 4. Opthalmic evaluation. 5. F/u ECG. 6. Echocardiogram. 7. Neurological evaluation. 8. F/u CBC, BMP. Prognosis critical Candido Barber MD; FACC.
[2019-11-15] MEDS: ROSUVASTATIN CA 5 MG TABLET (FP) PO SCH (21:03)
[2019-11-16] MEDS: POTASSIUM CHLORIDE TABS 20 MEQ TABLET.ER (FP) PO SCH (06:23)
[2019-11-16] MEDS: APIXABAN 2.5 MG TABLET PO SCH ×2 (09:02→21:19)
[2019-11-16] MEDS: FOLIC ACID 1 MG TABLET (FP) PO SCH (09:02)
[2019-11-16] MEDS: HYDROCHLOROTHIAZIDE 12.5 MG CAPSULE (FP) PO SCH (09:02)
[2019-11-16] MEDS ORDERED: METHOTREXATE 2.5 MG TABLET PO SCH (10:00)
--- NOTE | 2019-11-16 10:00 | PN ---
Progress Note (short form) - Note Progress Note: PULMONARY Denies shortness of breath, cough, chest pain. Wants to go home. Vital Signs Period Temp Pulse Resp BP Sys/Lee Pulse Ox Last 24 Hr 97.8 F-97.9 F 76-86 18-20 140-140/68-72 97 Gen: NAD at rest Heart: RRR Lung: decreased breath sounds at the bases Abd: soft, nontender Ext: no edema CBC, BMP 11/13/19 17:20 11/13/19 16:33 Active Medications Acetaminophen (Tylenol -) 650 mg PO Q6H PRN PRN Reason: FEVER Apixaban (Eliquis -) 2.5 mg PO BID [facility] Last Admin: 11/16/19 09:02 Dose: 2.5 mg Diphtheria/Tetanus/Acell Pertussis (Adacel Adolescent/Adult -) 0.5 ml IM .ONCE ONE Stop: 11/12/19 05:43 Folic Acid (Folic Acid -) 1 mg PO DAILY [facility] Last Admin: 11/16/19 09:02 Dose: 1 mg Hydrochlorothiazide (Hctz -) 12.5 mg PO DAILY [facility] Last Admin: 11/16/19 09:02 Dose: 12.5 mg Levofloxacin (Levaquin -) 250 mg PO DAILY@0600 [facility] Last Admin: 11/16/19 06:23 Dose: 250 mg Methotrexate (Mexate -) 15 mg PO He@1000 [facility] Last Admin: 11/16/19 09:09 Dose: Not Given Metoprolol Succinate (Toprol Xl -) 50 mg PO BID [facility] Last Admin: 11/16/19 09:02 Dose: 50 mg Potassium Chloride (K-Dur -) 40 meq PO DAILY@0600 [facility] Last Admin: 11/16/19 06:23 Dose: 40 meq Rosuvastatin Calcium (Crestor -) 5 mg PO HS [facility] Last Admin: 11/15/19 21:03 Dose: 5 mg A/P Altered Mental Status Hypoxia resoved Paroxysmal Atrial Fibrillation HTN Hyperlipidemia Finger Cellulitis - rate controlled - continue anticoagulation - complete antibiotics - monitor SpO2
--- NOTE | 2019-11-16 15:52 | PN ---
Progress Note, Physician History of Present Illness: Pt is alert, stating she feels better. Rt finger edema improving. Family at bedside she's much more alert/lucid today. Tolerating antibiotics. - Current Medication List Current Medications: Active Medications Acetaminophen (Tylenol -) 650 mg PO Q6H PRN PRN Reason: FEVER Apixaban (Eliquis -) 2.5 mg PO BID [facility] Last Admin: 11/16/19 09:02 Dose: 2.5 mg Diphtheria/Tetanus/Acell Pertussis (Adacel Adolescent/Adult -) 0.5 ml IM .ONCE ONE Stop: 11/12/19 05:43 Folic Acid (Folic Acid -) 1 mg PO DAILY [facility] Last Admin: 11/16/19 09:02 Dose: 1 mg Hydrochlorothiazide (Hctz -) 12.5 mg PO DAILY [facility] Last Admin: 11/16/19 09:02 Dose: 12.5 mg Levofloxacin (Levaquin -) 250 mg PO DAILY@0600 [facility] Last Admin: 11/16/19 06:23 Dose: 250 mg Methotrexate (Mexate -) 15 mg PO He@1000 [facility] Last Admin: 11/16/19 09:09 Dose: Not Given Metoprolol Succinate (Toprol Xl -) 50 mg PO BID [facility] Last Admin: 11/16/19 09:02 Dose: 50 mg Potassium Chloride (K-Dur -) 40 meq PO DAILY@0600 [facility] Last Admin: 11/16/19 06:23 Dose: 40 meq Rosuvastatin Calcium (Crestor -) 5 mg PO HS [facility] Last Admin: 11/15/19 21:03 Dose: 5 mg - Objective Vital Signs: Vital Signs Temperature 97.9 F 11/16/19 14:47 Pulse Rate 81 11/16/19 14:47 Respiratory Rate 20 11/16/19 14:47 Blood Pressure 131/60 11/16/19 14:47 O2 Sat by Pulse Oximetry (%) 97 11/15/19 21:00 Constitutional: Yes: No Distress, Calm Cardiovascular: Yes: Regular Rate and Rhythm Respiratory: Yes: CTA Bilaterally Gastrointestinal: Yes: Normal Bowel Sounds, Soft Extremities: Yes: Erythema (Rt hand swelling erythema resolved, Rt middle distal finger +mild erythema/edema but improving) Neurological: Yes: Alert Labs: CBC, BMP 11/13/19 17:20 11/13/19 16:33 INR, PTT INR 1.70 (0.83-1.09) H 11/10/19 12:33 Microbiology 11/10/19 16:00 Urine - Urine Clean Catch Urine Culture - Final NO GROWTH OBTAINED Problem List - Problems (1) Cellulitis of right middle finger Code(s): L03.011 - CELLULITIS OF RIGHT FINGER (2) HLD (hyperlipidemia) Code(s): E78.5 - HYPERLIPIDEMIA, UNSPECIFIED (3) Hypertension Code(s): I10 - ESSENTIAL (PRIMARY) HYPERTENSION (4) Ocular cicatricial pemphigoid Code(s): L12.1 - CICATRICIAL PEMPHIGOID (5) Weakness Code(s): R53.1 - WEAKNESS (6) Atrial fibrillation with rapid ventricular response Code(s): I48.91 - UNSPECIFIED ATRIAL FIBRILLATION Assessment/Plan Rt hand/middle finger cellulitis -- mild erythema/edema distal Rt finger, rest of hand cellulitis resolved -- continue levaquin -- Orthopedics follow up
--- NOTE | 2019-11-16 16:36 | PN ---
Progress Note (short form) - Note Progress Note: Long-standing history of hypertension, hyper lipidemia, mitral valvular disease , recent episode of paroxysmal atrial fibrillation,admitted with weakness and inability to stand, and during hospitalization developed mental confusion. History of abscess of the rt. middle finger initially seen at a urgent care and treated with oral antibiotics. Progressive unintentional weight loss without loss of appetite. Patient is recurrence of confused in time and space, no SOB, tolerating medications, awaiting transfer to SNF . Active Medications Acetaminophen (Tylenol -) 650 mg PO Q6H PRN PRN Reason: FEVER Apixaban (Eliquis -) 2.5 mg PO BID [facility] Last Admin: 11/16/19 09:02 Dose: 2.5 mg Diphtheria/Tetanus/Acell Pertussis (Adacel Adolescent/Adult -) 0.5 ml IM .ONCE ONE Stop: 11/12/19 05:43 Folic Acid (Folic Acid -) 1 mg PO DAILY [facility] Last Admin: 11/16/19 09:02 Dose: 1 mg Hydrochlorothiazide (Hctz -) 12.5 mg PO DAILY [facility] Last Admin: 11/16/19 09:02 Dose: 12.5 mg Levofloxacin (Levaquin -) 250 mg PO DAILY@0600 [facility] Last Admin: 11/16/19 06:23 Dose: 250 mg Methotrexate (Mexate -) 15 mg PO He@1000 [facility] Last Admin: 11/16/19 09:09 Dose: Not Given Metoprolol Succinate (Toprol Xl -) 50 mg PO BID [facility] Last Admin: 11/16/19 09:02 Dose: 50 mg Potassium Chloride (K-Dur -) 40 meq PO DAILY@0600 [facility] Last Admin: 11/16/19 06:23 Dose: 40 meq Rosuvastatin Calcium (Crestor -) 5 mg PO HS [facility] Last Admin: 11/15/19 21:03 Dose: 5 mg Last Vital Signs Temp Pulse Resp BP Pulse Ox 97.9 F 81 20 131/60 97 11/16/19 14:47 11/16/19 14:47 11/16/19 14:47 11/16/19 14:47 11/15/19 21:00 NECK: Supple, no JVD. HEART: No heave or thrills, S1 and S2 are normal SEMII/Vi at the second [facility]. LUNGS: clear. ABDOMEN: Soft, nontender, no organomegaly appreciated. EXTREMITIES: No calf tenderness or dependent edema.fluctuant lesion rt.middle. CBC, BMP 11/13/19 17:20 11/13/19 16:33 IMPRESSION: 1. Mental confusion, persists etiology to be determined: a). Metabolic/ toxic encephalopathy related recent URT infection b). Dementia needs to be excluded. 2. Progressive weght loss, etiology: needs to be determined. 3. H/o paroxysmal atrial fib. 4. HTN. 5. Ocular cicatricial pemphigoid. 6. Fluctuant lesion on the rt. middle finger. consider herpes. 7. HLD. 8. Occult malignancy needs to be ruled out. 9. Persistent hypokalemia Recommendations: 1. Need to confirm with the family regarding continuation of methotrexate( according to her daughter methotrexate was discontinued 3 weeks ago by opthal). 2. ESR, CRP, Lyme titers. 3. MRI of the brain as suggested by radiology. 4. Opthalmic evaluation. 5. F/u ECG. 6. REPEAT CBC, BMP prior to considering discharge. 7. Neurological evaluation. Prognosis critical Candido Barber MD; FACC.
--- NOTE | 2019-11-16 19:32 | CONSULT ---
Consult - text type - Consultation Consultation Note: NEUROLOGY CONSULTATION is greatly appreciated: Events reviewed and discussed with RNs. Patient examined. This 89 yo RH woman livers with her daughter in [place]. PMH sig for HTN. Chol, MVP and occular pemphigoid Maintained on: Methotrexate, eliquis, crestor, HCTZ, metoprolol. Admitted 11/10 for right digit II infection and cellulitis. Nurses recall her being confused from the time of admissiom, supported by 2 head CTs performed on 11/10 and 11/12. Both GT scans reviewed: Moderate, diffuse atrophy without acute changes. TSH normal. WILMAR: Neck supple, no bruits, no evidence of external head trauma. Old right knee ecchymosis NEURO: Awake, alert friendly and cooperative. Knows she lives in [place] but thinks she is in [facility] "right here." Knows it is the "beginning of Oct" but not the day of the week or year. No president. Recalls 0 of 3 at 3 mins. + Glabella, snout, suck. Fluent speech. CN II-XII: normal Motor: no drift or tremor. Normal strength, bulk, tone and reflexes except absent AJ's. Downgoing toes Coord: No FTN dystaxia Sensory: Decreased vib toes. Romberg - Gait: Flexed, shuffling, unsteady turning IMP: Moderately severe, B/L cerebral dysfunction (OMS, clearly chronic features) . 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 Suggest: Check B12, RPR Give parenteral thiamine until D/C, than give PO D/C to home to reorient to her familiar environment. Neuro F/U as out patient for additional eval and Rx if necessary. Thank you very much, Poonam Cervantes MD
[2019-11-16] MEDS: THIAMINE HCL 200 MG/2 ML VIAL IVPB SCH ×3 (21:00→21:25)
[2019-11-16] MEDS: ROSUVASTATIN CA 5 MG TABLET (FP) PO SCH (21:19)
--- NOTE | 2019-11-16 22:09 | PN ---
Progress Note, Physician History of Present Illness: Pt's granddaughter at bedside and states confusion has improved slightly - Current Medication List Current Medications: Active Medications Acetaminophen (Tylenol -) 650 mg PO Q6H PRN PRN Reason: FEVER Apixaban (Eliquis -) 2.5 mg PO BID [facility] Last Admin: 11/16/19 21:19 Dose: 2.5 mg Diphtheria/Tetanus/Acell Pertussis (Adacel Adolescent/Adult -) 0.5 ml IM .ONCE ONE Stop: 11/12/19 05:43 Folic Acid (Folic Acid -) 1 mg PO DAILY [facility] Last Admin: 11/16/19 09:02 Dose: 1 mg Hydrochlorothiazide (Hctz -) 12.5 mg PO DAILY [facility] Last Admin: 11/16/19 09:02 Dose: 12.5 mg Levofloxacin (Levaquin -) 250 mg PO DAILY@0600 [facility] Last Admin: 11/16/19 06:23 Dose: 250 mg Metoprolol Succinate (Toprol Xl -) 50 mg PO BID [facility] Last Admin: 11/16/19 21:19 Dose: 50 mg Potassium Chloride (K-Dur -) 40 meq PO DAILY@0600 [facility] Last Admin: 11/16/19 06:23 Dose: 40 meq Rosuvastatin Calcium (Crestor -) 5 mg PO HS [facility] Last Admin: 11/16/19 21:19 Dose: 5 mg Thiamine HCl (Vitamin B1 Injection -) 200 mg IVPB Q8H [facility] Stop: 11/18/19 22:00 - Objective Vital Signs: Vital Signs Temperature 97.6 F 11/16/19 19:18 Pulse Rate 76 11/16/19 19:18 Respiratory Rate 20 11/16/19 19:18 Blood Pressure 128/64 11/16/19 19:18 O2 Sat by Pulse Oximetry (%) 97 11/15/19 21:00 Neck: Yes: WNL, Supple Cardiovascular: Yes: WNL, Regular Rate and Rhythm Respiratory: Yes: WNL, Regular, CTA Bilaterally Gastrointestinal: Yes: WNL, Normal Bowel Sounds, Soft Extremities: Yes: Other (Rt finger w/ DIP lesion) Labs: CBC, BMP 11/13/19 17:20 11/13/19 16:33 INR, PTT INR 1.70 (0.83-1.09) H 11/10/19 12:33 Problem List - Problems (1) Cellulitis of right middle finger Assessment/Plan: Cont levaquin Code(s): L03.011 - CELLULITIS OF RIGHT FINGER (2) Altered mental status Assessment/Plan: Neuro consult noted Code(s): R41.82 - ALTERED MENTAL STATUS, UNSPECIFIED (3) Paroxysmal A-fib Assessment/Plan: Cont eliquis Heart rate controlled Code(s): I48.0 - PAROXYSMAL ATRIAL FIBRILLATION (4) Metabolic encephalopathy Code(s): G93.41 - METABOLIC ENCEPHALOPATHY (5) Hypertension Assessment/Plan: BP stable Code(s): I10 - ESSENTIAL (PRIMARY) HYPERTENSION (6) HLD (hyperlipidemia) Code(s): E78.5 - HYPERLIPIDEMIA, UNSPECIFIED
[2019-11-17] MEDS: THIAMINE HCL 200 MG/2 ML VIAL IVPB SCH ×2 (04:39→13:12)
[2019-11-17 05:20] VITALS: TEMP 97.7
[2019-11-17] MEDS: POTASSIUM CHLORIDE TABS 20 MEQ TABLET.ER (FP) PO SCH (06:20)
[2019-11-17 09:03] LABS: HEMATOCRIT 39.4 % (32.4-45.2); HEMOGLOBIN 13.6 GM/dL (10.7-15.3); LYMPH % 19.3 % (8-40); MCH 33.2 pg (25.7-33.7); MCHC 34.6 g/dl (32.0-36.0); MEAN CELL VOLUME 95.8 fl (80-96); MEAN PLT VOLUME 6.2 fl (7.5-11.1); MONO % 20.8 % (3.8-10.2); NEUT % 56.9 % (42.8-82.8); PLATELET COUNT 318 K/MM3 (134-434); RBC 4.11 M/mm3 (3.60-5.2); RDW 12.8 % (11.6-15.6)
[2019-11-17 09:55] LABS: ALBUMIN 2.5 g/dl (3.4-5.0); BILIRUBIN,TOTAL 0.6 mg/dL (0.2-1); BLOOD UREA NITROGEN 20.7 mg/dL (7-18); CALCIUM 8.8 mg/dL (8.5-10.1); CREATININE 0.9 mg/dL (0.55-1.3); POTASSIUM 3.7 mmol/L (3.5-5.1); TOT PROT 6.3 g/dl (6.4-8.2)
--- NOTE | 2019-11-17 10:39 | PN ---
Progress Note (short form) - Note Progress Note: Long-standing history of hypertension, hyper lipidemia, mitral valvular disease , recent episode of paroxysmal atrial fibrillation,admitted with weakness and inability to stand, and during hospitalization developed mental confusion. History of abscess of the rt. middle finger initially seen at a urgent care and treated with oral antibiotics. Progressive unintentional weight loss without loss of appetite. Patient is fully alert and knows that she is being transferred ti SNF. No chest pain or SOB reported. Walking with PT with a walker. Active Medications Acetaminophen (Tylenol -) 650 mg PO Q6H PRN PRN Reason: FEVER Apixaban (Eliquis -) 2.5 mg PO BID [facility] Last Admin: 11/16/19 21:19 Dose: 2.5 mg Diphtheria/Tetanus/Acell Pertussis (Adacel Adolescent/Adult -) 0.5 ml IM .ONCE ONE Stop: 11/12/19 05:43 Folic Acid (Folic Acid -) 1 mg PO DAILY [facility] Last Admin: 11/16/19 09:02 Dose: 1 mg Hydrochlorothiazide (Hctz -) 12.5 mg PO DAILY [facility] Last Admin: 11/16/19 09:02 Dose: 12.5 mg Levofloxacin (Levaquin -) 250 mg PO DAILY@0600 [facility] Last Admin: 11/17/19 06:20 Dose: 250 mg Metoprolol Succinate (Toprol Xl -) 50 mg PO BID [facility] Last Admin: 11/16/19 21:19 Dose: 50 mg Potassium Chloride (K-Dur -) 40 meq PO DAILY@0600 [facility] Last Admin: 11/17/19 06:20 Dose: 40 meq Rosuvastatin Calcium (Crestor -) 5 mg PO HS [facility] Last Admin: 11/16/19 21:19 Dose: 5 mg Thiamine HCl (Vitamin B1 Injection -) 200 mg IVPB Q8H [facility] Stop: 11/18/19 22:00 Last Admin: 11/17/19 04:39 Dose: 200 mg Last Vital Signs Temp Pulse Resp BP Pulse Ox 97.7 F 72 20 113/52 L 97 11/17/19 05:19 11/17/19 05:19 11/17/19 05:19 11/17/19 05:19 11/16/19 21:00 NECK: Supple, no JVD. HEART: No heave or thrills, S1 and S2 are normal SEMII/Vi at the second RCS. LUNGS: clear. ABDOMEN: Soft, nontender, no organomegaly appreciated. EXTREMITIES: No calf tenderness or dependent edema.fluctuant lesion rt.middle. CBC, BMP 11/17/19 07:35 11/17/19 07:35 IMPRESSION: 1. Mental confusion, resolved, most likelt Toxic and/or metabolic encephalopathy 2. Progressive weght loss, etiology: needs to be determined. 3. H/o paroxysmal atrial fib. 4. HTN. 5. Ocular cicatricial pemphigoid. 6. Fluctuant lesion on the rt. middle finger, resolving. 7. HLD. 8. Leukopenia. Recommendations: 1. Continue current medications. 2. Office F/u when discharged from SNF 3. F/u CBC. Candido Barber MD; FACC.
[2019-11-17] MEDS: APIXABAN 2.5 MG TABLET PO SCH (10:54)
[2019-11-17] MEDS: HYDROCHLOROTHIAZIDE 12.5 MG CAPSULE (FP) PO SCH (10:54)
[2019-11-17] MEDS: FOLIC ACID 1 MG TABLET (FP) PO SCH (10:54)
[2019-11-17 11:08] VITALS: BP 90/51; PULSE 79
--- NOTE | 2019-11-17 11:19 | PN ---
Progress Note, Physician History of Present Illness: stable no new issues hand looks good - Current Medication List Current Medications: Active Medications Acetaminophen (Tylenol -) 650 mg PO Q6H PRN PRN Reason: FEVER Apixaban (Eliquis -) 2.5 mg PO BID [facility] Last Admin: 11/17/19 10:54 Dose: 2.5 mg Diphtheria/Tetanus/Acell Pertussis (Adacel Adolescent/Adult -) 0.5 ml IM .ONCE ONE Stop: 11/12/19 05:43 Folic Acid (Folic Acid -) 1 mg PO DAILY [facility] Last Admin: 11/17/19 10:54 Dose: 1 mg Hydrochlorothiazide (Hctz -) 12.5 mg PO DAILY [facility] Last Admin: 11/17/19 10:54 Dose: 12.5 mg Levofloxacin (Levaquin -) 250 mg PO DAILY@0600 [facility] Last Admin: 11/17/19 06:20 Dose: 250 mg Metoprolol Succinate (Toprol Xl -) 50 mg PO BID [facility] Last Admin: 11/17/19 10:54 Dose: 50 mg Potassium Chloride (K-Dur -) 40 meq PO DAILY@0600 [facility] Last Admin: 11/17/19 06:20 Dose: 40 meq Rosuvastatin Calcium (Crestor -) 5 mg PO HS [facility] Last Admin: 11/16/19 21:19 Dose: 5 mg Thiamine HCl (Vitamin B1 Injection -) 200 mg IVPB Q8H [facility] Stop: 11/18/19 22:00 Last Admin: 11/17/19 04:39 Dose: 200 mg - Objective Vital Signs: Vital Signs Temperature 97.7 F 11/17/19 05:19 Pulse Rate 79 11/17/19 09:00 Respiratory Rate 18 11/17/19 09:00 Blood Pressure 90/51 L 11/17/19 09:00 O2 Sat by Pulse Oximetry (%) 97 11/16/19 21:00 Constitutional: Yes: No Distress, Calm Cardiovascular: Yes: S1, S2 Respiratory: Yes: Regular, CTA Bilaterally Gastrointestinal: Yes: Normal Bowel Sounds, Soft Musculoskeletal: Yes: WNL Extremities: Yes: Erythema (resolved), Other Neurological: Yes: Alert, Oriented Psychiatric: Yes: Alert, Oriented Labs: CBC, BMP 11/17/19 07:35 11/17/19 07:35 INR, PTT INR 1.70 (0.83-1.09) H 11/10/19 12:33 Assessment/Plan Problem List - Problems (1) Cellulitis of right middle finger Code(s): L03.011 - CELLULITIS OF RIGHT FINGER (2) HLD (hyperlipidemia) Code(s): E78.5 - HYPERLIPIDEMIA, UNSPECIFIED (3) Hypertension Code(s): I10 - ESSENTIAL (PRIMARY) HYPERTENSION (4) Ocular cicatricial pemphigoid Code(s): L12.1 - CICATRICIAL PEMPHIGOID (5) Atrial fibrillation with rapid ventricular response Code(s): I48.91 - UNSPECIFIED ATRIAL FIBRILLATION plan complete 5 days of levaquin and stop rest as per the team
--- NOTE | 2019-11-17 11:34 | PN ---
Progress Note (short form) - Note Progress Note: PULMONARY Denies shortness of breath, cough, chest pain. Wants to go home. Vital Signs Period Temp Pulse Resp BP Sys/Lee Pulse Ox Last 24 Hr 97.6 F-97.9 F 72-81 18-20 90-131/51-64 97 Gen: NAD at rest Heart: RRR Lung: decreased breath sounds at the bases Abd: soft, nontender Ext: no edema CBC, BMP 11/17/19 07:35 11/17/19 07:35 Active Medications Acetaminophen (Tylenol -) 650 mg PO Q6H PRN PRN Reason: FEVER Apixaban (Eliquis -) 2.5 mg PO BID [facility] Last Admin: 11/17/19 10:54 Dose: 2.5 mg Diphtheria/Tetanus/Acell Pertussis (Adacel Adolescent/Adult -) 0.5 ml IM .ONCE ONE Stop: 11/12/19 05:43 Folic Acid (Folic Acid -) 1 mg PO DAILY [facility] Last Admin: 11/17/19 10:54 Dose: 1 mg Hydrochlorothiazide (Hctz -) 12.5 mg PO DAILY [facility] Last Admin: 11/17/19 10:54 Dose: 12.5 mg Levofloxacin (Levaquin -) 250 mg PO DAILY@0600 [facility] Last Admin: 11/17/19 06:20 Dose: 250 mg Metoprolol Succinate (Toprol Xl -) 50 mg PO BID [facility] Last Admin: 11/17/19 10:54 Dose: 50 mg Potassium Chloride (K-Dur -) 40 meq PO DAILY@0600 [facility] Last Admin: 11/17/19 06:20 Dose: 40 meq Rosuvastatin Calcium (Crestor -) 5 mg PO HS [facility] Last Admin: 11/16/19 21:19 Dose: 5 mg Thiamine HCl (Vitamin B1 Injection -) 200 mg IVPB Q8H [facility] Stop: 11/18/19 22:00 Last Admin: 11/17/19 04:39 Dose: 200 mg A/P Altered Mental Status Hypoxia resoved Paroxysmal Atrial Fibrillation HTN Hyperlipidemia Finger Cellulitis - rate controlled - continue anticoagulation - completed antibiotics - monitor SpO2
[2019-11-17 14:53] LABS: ANISOCYTOSIS 2+; MACROCYTOSIS 0; OVALOCYTE 1+; PLATELET ESTIMATE NORMAL
--- NOTE | 2019-11-17 16:11 | DS ---
Physical Examination Vital Signs: Vital Signs Temperature 97.7 F 11/17/19 05:19 Pulse Rate 79 11/17/19 09:00 Respiratory Rate 18 11/17/19 09:00 Blood Pressure 90/51 L 11/17/19 09:00 O2 Sat by Pulse Oximetry (%) 97 11/16/19 21:00 Constitutional: Yes: No Distress HENT: Yes: Atraumatic Neck: Yes: Supple Cardiovascular: Yes: Regular Rate and Rhythm Respiratory: Yes: CTA Bilaterally Gastrointestinal: Yes: Normal Bowel Sounds Extremities: Yes: Other (R middle finger cellulitis much improved) Neurological: Yes: Alert, Oriented Labs: CBC, BMP 11/17/19 07:35 11/17/19 07:35 Discharge Summary Problems reviewed: Yes Reason For Visit: WEAKNESS,CELLULITIS OF RT MIDDLE FINGER Condition: Stable - Instructions Diet, Activity, Other Instructions: warm compresses to R middle finger 3-4 times per day Referrals: Candido Barber MD [Primary Care Provider] - Disposition: ASSISTED FACILITY - Home Medications Comprehensive Discharge Medication List: Ambulatory Orders Folic Acid 1 mg PO DAILY 07/31/19 Methotrexate Sodium [Methotrexate] 15 mg PO GAITAN 07/31/19 Apixaban [Eliquis -] 2.5 mg PO BID #60 tablet 08/01/19 Hydrochlorothiazide [Hctz -] 12.5 mg PO DAILY 11/10/19 Metoprolol Succinate [Toprol XL -] 50 mg PO BID 11/10/19 Rosuvastatin [Crestor -] 5 mg PO HS 11/10/19 Levofloxacin [Levaquin] 500 mg PO DAILY #7 tablet 11/13/19 .....do 5 more days then stop
== END 2019-11-17 14:58 | DRG 602 ==
LOC: JER 10:35 → JERBED 14:38 → J6S 11-11 16:09
PROVIDERS: ADMIT Internal Medicine; ATTEND Internal Medicine
DX: L03.011 Cellulitis of right finger (principal); G93.41 Metabolic encephalopathy; Z68.1 Body mass index [BMI] 19.9 or less, adult; I10 Essential (primary) hypertension; E78.00 Pure hypercholesterolemia, unspecified; I08.0 Rheumatic disorders of both mitral and aortic valves; L12.1 Cicatricial pemphigoid; I48.91 Unspecified atrial fibrillation; E87.6 Hypokalemia; R63.4 Abnormal weight loss; R09.02 Hypoxemia; I48.0 Paroxysmal atrial fibrillation; R41.82 Altered mental status, unspecified; G30.9 Alzheimer's disease, unspecified; F02.80 Dementia in other diseases classified elsewhere, unspecified severity, without behavioral disturbance, psychotic disturbance, mood disturbance, and anxiety
CPT/HCPCS: 36415; 70450-TC; 71045-TC-FY; 73130-TC-RT-FY; 73140-TC-RT-FY; 73562-TC-LT-FY; 73562-TC-RT-FY; 80053; 81003; 82550; 82553; 82607; 83735; 84100; 84443; 84484; 85025; 85610; 85730; 86593; 86618; 87086; 87804; 93005; 93010; 97116-GP; 97161-GP; 99285-25